=== PATIENT | male | born 1965 | race Two or more races ===

== ENCOUNTER 2021-10-08 10:03 | Outpatient (REF) | payer MEDICAID, SELFPAY ==
[2021-10-08 11:04] LABS: Basophils Percent Auto 0.2 % (0-2); Eosinophils Absolute Auto 0.1 X10*3/uL (0.0-0.4); Eosinophils Percent Auto 0.4 % (0-4); Hematocrit 37.9 % (42.0-52.0); Hemoglobin 12.7 g/dl (14.0-18.0); Imm Gran Abs Auto 0.05 X10*3/uL (0.00-0.03); Imm Gran Pct Auto 0.3 % (0.0-0.4); Lymphocytes Percent Auto 77.3 % (20-40); MANUAL DIFF FLAG SCAN; Mean Corpuscular HGB Conc 33.5 g/dl (31.0-36.0); Mean Corpuscular Hemoglobin 29.5 pg (27.0-33.0); Mean Corpuscular Volume 87.9 fL (80.0-98.0); Mean Platelet Volume 10.4 fL (9.4-12.4); Monocytes Absolute Auto 0.7 X10*3/uL (0.1-1.2); Monocytes Percent Auto 4.4 % (2-11); Neutrophils Absolute Auto 2.8 x10*3/uL (2.0-8.3); Neutrophils Percent Auto 17.4 % (45-73); Red Blood Count 4.31 X10*6/uL (4.60-5.80); Red Cell Distribution Width 14.6 % (11.0-16.0); SCAN SMEAR FLAG 1
[2021-10-08 11:05] LABS: Lymphocytes Absolute Auto 12.4 X10*3/uL (1.2-4.9)
[2021-10-08 11:13] LABS: INTERNATIONAL NORM RATIO 1.1 (0.9-1.1); Prothrombin Time 12.4 SEC (9.9-13.0)
[2021-10-08 11:25] LABS: Platelet Count 81 X10*3/uL (160-400); SLIDE REVIEW VERIFIED
[2021-10-08 11:35] LABS: Iron 83 mcg/dL (45-160); Percent Iron Saturation 19 % (15-50); Total Iron Binding Capacity 432 mcg/dL (228-428); Unsaturated Iron Binding 349 ug/dL
[2021-10-08 11:56] LABS: Ferritin 87 ng/mL (20-250)
[2021-10-08 11:59] LABS: Folate 12.6 ng/mL (> or = 4.0); Vitamin B12 707 pg/mL (200-900)
== END 2021-10-08 10:04 | disposition home or self-care (01) ==
LOC: HO.LAB 10:03
PROVIDERS: PCP Family Medicine; Visit Provider Family Medicine
DX: R20.0 Anesthesia of skin (principal)
CPT/HCPCS: 36415; 82607; 82728; 82746; 83540; 85025; 85610; 85730

== ENCOUNTER 2021-11-28 13:03 | Outpatient (REF) | payer MEDICAID, SELFPAY ==
--- NOTE | ~2021-11-28 | US_ITS ---
EXAMINATION: US EXTREMITY NONVASCULAR CLINICAL INFORMATION: Right lateral forearm tender mobile subcutaneous mass. COMPARISON: None TECHNIQUE: Limited imaging to the right upper forearm is performed. FINDINGS: There is no visible true mass or fluid collection. The area pointed by the lump is corresponding to a normal forearm muscle tissue. The subcutaneous soft tissues are normal, as well. US/US extremity nonvascular padgett IMPRESSION: No mass or fluid collection seen along the right forearm where patient points to an area of lump. The area is likely normal musculature.
== END 2021-11-28 13:04 | disposition home or self-care (01) ==
LOC: HO.US 13:03
PROVIDERS: PCP Family Medicine; Visit Provider Family Medicine
DX: R22.31 Localized swelling, mass and lump, right upper limb (principal)
CPT/HCPCS: 76882

== ENCOUNTER 2021-11-29 08:39 | Outpatient (REF) | payer MEDICAID, SELFPAY ==
--- NOTE | 2021-11-29 | EMG_ITS ---
Right median and ulnar motor and sensory studies were performed. Right radial sensory study was performed and paraspinal muscles were tested with a needle. IMPRESSION: 1. [id number] right median neuropathy across carpal tunnel. 2. Mild right ulnar neuropathy across cubital tunnel. MD RICK Win/RITIKA / [id number]
== END 2021-11-29 08:40 | disposition home or self-care (01) ==
LOC: HO.NEURO 08:39
PROVIDERS: PCP Family Medicine; Visit Provider Family Medicine
DX: R20.0 Anesthesia of skin (principal)
CPT/HCPCS: 95886; 95909

== ENCOUNTER 2022-01-04 14:24 | Outpatient (REF) | payer MEDICAID, SELFPAY ==
--- NOTE | ~2022-01-04 | CT_ITS ---
EXAMINATION: CT CHEST SCREENING CLINICAL INFORMATION: 45 pack year history. Current smoker. COMPARISON: Previous chest x-ray November 2017 TECHNIQUE: Multidetector volumetric CT imaging of the chest is performed without contrast using low dose technique. Additional 2D coronal and sagittal reformatted images and axial 3D maximum intensity projection (MIP) images are generated on the CT workstation. This CT examination was performed using dose optimization techniques as appropriate, variously including the following: *Automated exposure control *Adjustment of mA and/or kV according to patient size (this includes techniques or standardized protocols for targeted exams where dose is matched to indication/reason for exam; i.e. extremities or head) *Use of iterative reconstruction technique DLP: 72 mGy-cm FINDINGS: LUNGS: There is evidence of paraseptal and edema. There is a 4 mm calcified right middle lobe nodule 93 series 4. The lungs are otherwise clear. MEDIASTINUM: There is mild coronary artery calcification. The mediastinum is otherwise normal. PLEURA: There is no pleural effusion. No pleural mass or thickening. AXILLA: No lymphadenopathy. UPPER ABDOMEN: The spleen is very enlarged and measures at least 23 cm in AP dimension. Gallbladder has been removed. OSSEOUS STRUCTURES: Unremarkable. CT/CT lung screening IMPRESSION: Mild emphysema. 4 mm calcified right middle lobe nodule. Mild coronary artery calcification. Very enlarged spleen. ASSESSMENT: Lung-RADS category 2S: Benign S for the very enlarged spleen RECOMMENDATION: Annual low-dose chest CT follow-up recommended. Dedicated imaging of the spleen and correlation with blood work recommended.
== END 2022-01-04 14:25 | disposition home or self-care (01) ==
LOC: HO.CT 14:24
PROVIDERS: PCP Family Medicine; Visit Provider Physician Assistant Medical
DX: Z12.2 Encounter for screening for malignant neoplasm of respiratory organs (principal); F17.210 Nicotine dependence, cigarettes, uncomplicated
CPT/HCPCS: 71271; G0296

== ENCOUNTER 2022-01-29 12:25 | Outpatient (REF) | payer MEDICAID, SELFPAY ==
[2022-01-29 15:08] LABS: Alanine Aminotransferase 36 U/L (0-40); Albumin Level 4.1 g/dL (3.5-5.0); Alkaline Phosphatase 83 U/L (39-117); Anion Gap 10 (12-20); Aspartate Amino Transferase 48 U/L (5-37); Bilirubin Total 0.6 mg/dL (0.0-1.0); Blood Urea Nitrogen 12 mg/dL (9-16); Calcium 9.4 mg/dL (8.4-10.2); Carbon Dioxide 32 mmol/L (22-29); Chloride 102 mmol/L (96-108); Estimated Glomerular Filt Rate > 60; Glucose Random 100 mg/dL (60-115); Sodium 139 mmol/L (135-145); Total Protein 7.3 g/dL (6.5-8.0)
[2022-01-29 15:34] LABS: TSH reflex Free T4 0.64 uIU/mL (0.32-4.0)
[2022-01-29 15:39] LABS: Folate 8.1 ng/mL (> or = 4.0); Vitamin B12 792 pg/mL (200-900)
[2022-01-31 14:52] LABS: H Pylori Breath Test Negative (Negative)
[2022-02-03 12:57] LABS: Vitamin D 25-OH, D2 <4 ng/mL; Vitamin D 25-OH, D3 28 ng/mL; Vitamin D 25-OH, Total 28 ng/mL (30-100)
== END 2022-01-29 12:26 | disposition home or self-care (01) ==
LOC: HO.LAB 12:25
PROVIDERS: PCP Family Medicine; Referring Provider Family Medicine; Visit Provider Nurse Practitioner Family
DX: K59.04 Chronic idiopathic constipation (principal); K21.9 Gastro-esophageal reflux disease without esophagitis; R19.7 Diarrhea, unspecified; E55.9 Vitamin D deficiency, unspecified
CPT/HCPCS: 36415; 80053; 82306; 82607; 82746; 83013; 84443; 99202

== ENCOUNTER → 2022-02-01 15:09 | Outpatient (BNV) | payer MEDICAID, SELFPAY | PROVIDERS: PCP Family Medicine; Visit Provider Internal Medicine Medical Oncology | DX: R16.1 Splenomegaly, not elsewhere classified (principal) | CPT/HCPCS: 99203; 99213 ==

== ENCOUNTER 2022-03-07 06:53 | Outpatient (REF) | payer MEDICAID, SELFPAY ==
--- NOTE | ~2022-03-07 | CT_ITS ---
EXAMINATION: CT ABDOMEN WITH CONTRAST CLINICAL INFORMATION: Enlarged spleen COMPARISON: Previous abdominal ultrasound June [address] December 2011 TECHNIQUE: Contiguous axial thin section helical images of the abdomen were performed following the administration of oral contrast and 85 mL of Omnipaque 300 intravenous contrast. The data set was reformatted in the coronal and sagittal planes and reviewed on an independent workstation. This CT examination was performed using dose optimization techniques as appropriate, variously including the following: *Automated exposure control *Adjustment of mA and/or kV according to patient size (this includes techniques or standardized protocols for targeted exams where dose is matched to indication/reason for exam; i.e. extremities or head) *Use of iterative reconstruction technique DLP: 239 mGy-cm FINDINGS: LUNG BASES: The lung bases are clear. LIVER, GALLBLADDER, AND BILIARY TREE: There is lobular contour of the liver suggestive of cirrhotic change. No focal liver lesion is seen. The gallbladder has been removed. There is no biliary duct dilatation. PANCREAS: Normal SPLEEN: The spleen is enlarged measuring 22 cm in length. No focal splenic lesion is seen. ADRENAL GLANDS AND KIDNEYS: The adrenal glands are normal-appearing. There is a 1 cm low-attenuation lesion in the lower pole of the right kidney suggestive of a cyst. The kidneys are otherwise unremarkable. BOWEL LOOPS: Normal LYMPH NODES: Normal. VASCULAR: Main portal vein is enlarged and there are extensive varices suggestive of portal hypertension. There is no ascites. BONES: Unremarkable CT/CT abdomen w con IMPRESSION: Cirrhotic appearing liver, splenomegaly and evidence of portal hypertension. Fleischner guidelines were followed.
== END 2022-03-07 06:54 | disposition home or self-care (01) ==
LOC: HO.CT 06:53
PROVIDERS: Absent Provider Internal Medicine Medical Oncology; PCP Family Medicine; Visit Provider Family Medicine
DX: R16.1 Splenomegaly, not elsewhere classified (principal)
CPT/HCPCS: 74160; Q9967

== ENCOUNTER 2022-04-02 12:30 | Outpatient (REF) | payer MEDICAID, SELFPAY ==
--- NOTE | 2022-04-02 | PFT_ITS ---
FLOWS: FEV1 82% of predicted at 2.95 L. FVC 78% of predicted at 3.60 L. FEV1 to FVC ratio of 0.82. No bronchodilator response. LUNG VOLUMES: Total lung capacity 78% of predicted at 5.36 L. Residual volume 83% of predicted at 1.80 L. Slow vital capacity 76% of predicted at 3.56 L. Expiratory reserve volume 77% of predicted at 1.05 L. Diffusion capacity is normal. IMPRESSION: Mild restrictive ventilatory defect with no bronchodilator response. MD NADEGE Sebastian/MODL / [id number]
== END 2022-04-02 12:31 | disposition home or self-care (01) ==
LOC: HO.RESP 12:30
PROVIDERS: PCP Family Medicine; Visit Provider Family Medicine
DX: R06.02 Shortness of breath (principal); K59.04 Chronic idiopathic constipation; K21.9 Gastro-esophageal reflux disease without esophagitis
CPT/HCPCS: 94060; 94727; 94729; 99212

== ENCOUNTER 2022-06-20 12:42 | Outpatient (REF) | payer MEDICAID, SELFPAY ==
--- NOTE | ~2022-06-20 | XR_ITS ---
EXAMINATION: XR CHEST CLINICAL INFORMATION: Wheezing. Chest wall pain. COMPARISON: Previous chest x-ray November [address] December 2021 TECHNIQUE: 2 views of the chest were obtained. FINDINGS: No significant abnormality is noted involving the heart, lungs, mediastinum, bony thorax or soft tissues. XR/XR chest 2V IMPRESSION: Unremarkable examination.
== END 2022-06-20 12:43 | disposition home or self-care (01) ==
LOC: HO.XRAY 12:42
PROVIDERS: Visit Provider Pediatrics
DX: R07.81 Pleurodynia (principal); R06.2 Wheezing
CPT/HCPCS: 71046

== ENCOUNTER → 2022-06-26 07:47 | Outpatient (BNVA) | payer MEDICAID, SELFPAY | PROVIDERS: PCP Family Medicine; Referring Provider Nurse Practitioner Family; Visit Provider Internal Medicine Cardiovascular Disease | DX: R06.02 Shortness of breath (principal) | CPT/HCPCS: 93005; 99202 ==

== ENCOUNTER 2022-08-08 12:18 | Emergency (ER) | payer MEDICAID, SELFPAY ==
--- NOTE | ~2022-08-08 | XR_ITS ---
EXAMINATION: XR ABDOMEN KUB CLINICAL INDICATION: Fecal impaction. COMPARISON: CT abdomen 03/07/2022. TECHNIQUE: AP view of the abdomen. FINDINGS: Nonobstructive bowel gas pattern. Large amount of stool content. No significant soft tissue or osseous abnormalities. Right upper quadrant surgical clips are noted. XR/XR KUB IMPRESSION: Nonobstructive bowel gas pattern. Large amount of stool content.
--- NOTE | ~2022-08-08 | CT_ITS ---
EXAMINATION: CT ABDOMEN AND PELVIS WITHOUT CONTRAST CLINICAL INFORMATION: Right-sided abdominal pain. Constipation. COMPARISON: CT abdomen 03/07/2022. TECHNIQUE: Multidetector volumetric imaging was performed from the superior aspect of the liver through the pubic symphysis. Sagittal and coronal reformatted images were obtained on the technologist's workstation. This CT examination was performed using dose optimization techniques as appropriate, variously including the following: *Automated exposure control *Adjustment of mA and/or kV according to patient size (this includes techniques or standardized protocols for targeted exams where dose is matched to indication/reason for exam; i.e. extremities or head) *Use of iterative reconstruction technique DLP: 750 mGy-cm FINDINGS: LUNG BASES: Bronchial wall thickening and subsegmental atelectasis. Calcified granuloma in the right middle lobe. No focal consolidation or pleural effusion. LIVER, GALLBLADDER, AND BILIARY TREE: Hepatomegaly with nodular contour of the liver and hypertrophy of the caudate suggesting cirrhosis. Limited evaluation of HCC and liver lesions in the absence of IV contrast. Cholecystectomy. Stable dilatation of the common bile duct. No significant intrahepatic biliary ductal dilatation. PANCREAS: Limited noncontrast examination, unremarkable. SPLEEN: Again noted splenomegaly measuring 20.2 cm craniocaudally, previously 22.6 cm on 03/07/2022. ADRENAL GLANDS: No adrenal mass. KIDNEYS AND URETERS: The kidneys are normal in size, shape, and attenuation. No hydronephrosis, hydroureter, or calculi seen. No perinephric stranding. BLADDER: Unremarkable. GASTROINTESTINAL TRACT: The stomach and the small bowel are nondilated. There are fluid filled loops of small bowel in the lower abdomen, which could be seen with gastroenteritis. The appendix is not definitely identified, however there are no regional inflammatory changes to suspected acute appendicitis. Moderate colonic stool content. No pericolic inflammatory changes. No evidence of bowel obstruction. ABDOMINAL WALL: No significant hernia is appreciated. LYMPH NODES: Stable periportal lymphadenopathy, for instance measuring 1.3 cm in short axis (3:26) nonspecific in the setting of cirrhosis. VASCULAR: Limited noncontrast examination with redemonstration of upper abdominal portosystemic varices and left-sided splenorenal shunt. Abdominal aorta is of normal diameter. PELVIC VISCERA: Unremarkable. OSSEOUS STRUCTURES: No acute or aggressive appearing osseous abnormalities. CT/CT abdomen pelvis wo IV con IMPRESSION: 1. Fluid-filled loops of small bowel in the lower abdomen, which could be seen with gastroenteritis in the appropriate clinical context. No evidence of bowel obstruction. 2. Moderate colonic stool burden. 3. Redemonstration of cirrhosis with findings most consistent with portal hypertension including splenomegaly and portosystemic collaterals. Limited evaluation of HCC and liver lesions in the absence of IV contrast. 4. Bronchial wall thickening suggesting small airways disease.
[2022-08-08 12:48] VITALS: PULSE 80; RESP 18; TEMP 36.7; O2SAT 96; BMI 33.6
[2022-08-08 13:03] LABS: PLT CLUMP 1; SCAN SMEAR FLAG 1
[2022-08-08 13:05] LABS: Basophils Percent Auto 0.2 % (0-2); Eosinophils Absolute Auto 0.1 X10*3/uL (0.0-0.4); Eosinophils Percent Auto 1.9 % (0-4); Hematocrit 33.8 % (42.0-52.0); Hemoglobin 11.8 g/dl (14.0-18.0); Imm Gran Abs Auto 0.03 X10*3/uL (0.00-0.03); Imm Gran Pct Auto 0.6 % (0.0-0.4); Lymphocytes Absolute Auto 1.5 X10*3/uL (1.2-4.9); Lymphocytes Percent Auto 31.5 % (20-40); Mean Corpuscular HGB Conc 34.9 g/dl (31.0-36.0); Mean Platelet Volume 10.5 fL (9.4-12.4); Monocytes Absolute Auto 0.4 X10*3/uL (0.1-1.2); Monocytes Percent Auto 9.1 % (2-11); Neutrophils Absolute Auto 2.8 x10*3/uL (2.0-8.3); Neutrophils Percent Auto 56.7 % (45-73); Red Blood Count 3.93 X10*6/uL (4.60-5.80); Red Cell Distribution Width 13.5 % (11.0-16.0)
[2022-08-08 13:06] LABS: White Blood Count 4.9 X10*3/uL (4.8-10.8)
[2022-08-08 13:07] LABS: MANUAL DIFF FLAG NO; Platelet Count 67 X10*3/uL (160-400)
[2022-08-08 13:35] LABS: Alanine Aminotransferase 64 U/L (0-40); Albumin Level 4.3 g/dL (3.5-5.0); Alkaline Phosphatase 80 U/L (39-117); Anion Gap 13 (12-20); Aspartate Amino Transferase 53 U/L (5-37); Bilirubin Total 0.7 mg/dL (0.0-1.0); Blood Urea Nitrogen 18 mg/dL (9-16); Calcium 9.5 mg/dL (8.4-10.2); Carbon Dioxide 31 mmol/L (22-29); Chloride 100 mmol/L (96-108); Creatinine Clr Calc Pharmacy 114.9; Estimated Glomerular Filt Rate > 60; Glucose Random 120 mg/dL (60-115); Potassium 4.5 mmol/L (3.3-5.1); Sodium 139 mmol/L (135-145); Total Protein 7.5 g/dL (6.5-8.0)
[2022-08-08 15:23] VITALS: BP 138/78; PULSE 77; RESP 16; TEMP 36.3; O2SAT 97
--- NOTE | 2022-08-08 15:43 | ED.ABDPAIN ---
HPI - Abdominal Pain General Chief Complaint: Abdominal Pain Stated Complaint: Abdominal Pain Time Seen by Provider: 08/08/22 23:41 Related Data Home Medications Medication Instructions Recorded Confirmed amlodipine 10 mg tablet 10 mg PO DAILY 01/29/22 04/02/22 buprenorphine 8 mg-naloxone 2 mg 10 mg sublingual BID 01/29/22 04/02/22 sublingual film (Suboxone) ferrous gluconate 324 mg (38 mg 324 mg PO DAILY 01/29/22 04/02/22 iron) tablet hydrochlorothiazide 25 mg tablet 25 mg PO DAILY 01/29/22 04/02/22 lisinopril 40 mg tablet 40 mg PO DAILY 01/29/22 04/02/22 trazodone 150 mg tablet 150 mg PO BEDTIME 01/29/22 04/02/22 Previous Rx's Medication Instructions Recorded docusate sodium 100 mg capsule 100 mg PO BID #60 caps 01/29/22 omeprazole 20 mg capsule,delayed 20 mg PO DAILY #30 caps 01/29/22 release bisacodyl 5 mg tablet,delayed 10 mg PO ONCE 1 day #2 tabs 04/02/22 release (Dulcolax (bisacodyl)) lactulose 20 gram oral packet 20 g PO DAILY PRN constipation #30 08/09/22 (Kristalose) ea Allergies Allergy/AdvReac Type Severity Reaction Status Date / Time No Known Allergies Allergy Verified 08/08/22 12:48 [No Known Allergies*] [facility] Past Medical History Medical History Chronic hepatitis C Colon polyp, hyperplastic (~2016) History of heroin use Hypertension, essential, benign Insomnia Liver cirrhosis Personal history of nicotine dependence Surgical History History of cholecystectomy (~2020) History of colonoscopy History of esophagogastroduodenoscopy (EGD) Family History Family History Brother Lung cancer Social History Social History Household Members: Family Housing: House Are you a primary career representative to a significant other at home: No Do you presently have visiting nurse or other home services: No Patient Tobacco Use Status: Former Tobacco user Tobacco use type: Cigarette Cigarette Packs Per Day: 1 Years Smoked: onset 11, 1ppd x 45yrs, 45pyh - QUIT 02/26/2022 Advance Directives: No Advance Directives Information Provided: Yes service: No Current occupational status: employed Physical Exam ED Vital Signs: Vital Signs - 24 hr 08/09/22 02:11 Temperature 97.8 F Pulse Rate 73 Respiratory Rate 16 Blood Pressure 142/77 H Pulse Oximetry 97 Oxygen Delivery Method Room Air BMI result Body Mass Index 33.6 Course Course Course Narrative: RME--57yoM PMHx Hep C presenting c/o 1 week of abd distention and pain. Sent in by PCP for paracentesis. Also reports constipation. Not on AC Labs, UA and CT ordered in triage Medications Administered Discontinued Medications Generic Name Dose Route Start Last Admin Trade Name Freq PRN Reason Stop Dose Admin Lactulose 20 gm 08/08/22 23:56 08/09/22 00:13 Lactulose 20 Gm/30 Ml Solution PO 08/08/22 23:57 20 gm ONCE ONE Administration Magnesium Hydroxide 30 ml 08/09/22 00:24 08/09/22 00:56 Milk Of Magnesia 30 Ml Oral.Susp PO 08/09/22 00:25 30 ml ONCE ONE Administration Sodium Biphosphate/Sodium Phosphate 133 ml 08/09/22 00:24 08/09/22 00:56 Sodium Phosphate,[place]-Dibasic 133 Ml Enema ND 08/09/22 00:25 133 ml ONCE ONE Administration MDM - Abdominal Pain Lab Data Result diagrams: 08/08/22 12:55 08/08/22 12:55 Labs: Lab Results 08/08/22 08/08/22 08/08/22 Range/Units 12:55 12:55 15:45 WBC 4.9 (4.8-10.8) X10*3/uL RBC 3.93 L (4.60-5.80) X10*6/uL Hgb 11.8 L (14.0-18.0) g/dl Hct 33.8 L (42.0-52.0) % MCV 86.0 (80.0-98.0) fL MCH 30.0 (27.0-33.0) pg MCHC 34.9 (31.0-36.0) g/dl RDW 13.5 (11.0-16.0) % Plt Count 67 L (160-400) X10*3/uL MPV 10.5 (9.4-12.4) fL Immature Gran % (Auto) 0.6 H (0.0-0.4) % Neut % (Auto) 56.7 (45-73) % Lymph % (Auto) 31.5 (20-40) % [place] % (Auto) 9.1 (2-11) % Eos % (Auto) 1.9 (0-4) % Baso % (Auto) 0.2 (0-2) % Lymph # (Auto) 1.5 (1.2-4.9) X10*3/uL [place] # (Auto) 0.4 (0.1-1.2) X10*3/uL Eos # (Auto) 0.1 (0.0-0.4) X10*3/uL Baso # (Auto) 0.0 (0.0-0.2) X10*3/uL Abs Immat Gran (auto) 0.03 (0.00-0.03) X10*3/uL Absolute Neuts (auto) 2.8 (2.0-8.3) x10*3/uL Absolute Nucleated RBC 0.000 (0.0-0.012) X10*3/uL Nucleated RBC % (auto) 0.0 (0.0-0.2) /100WBC PT 12.0 (10.0-13.1) SEC INR 1.0 (0.9-1.1) APTT 30.9 (26.0-36.4) SEC Sodium 139 (135-145) mmol/L Potassium 4.5 (3.3-5.1) mmol/L Chloride 100 (96-108) mmol/L Carbon Dioxide 31 H (22-29) mmol/L Anion Gap 13 (12-20) BUN 18 H (9-16) mg/dL Creatinine 0.83 (0.5-1.4) mg/dL Estim Creat Clear Calc 114.9 Estimated GFR > 60 Random Glucose 120 H (60-115) mg/dL Calcium 9.5 (8.4-10.2) mg/dL Magnesium 1.9 (1.6-2.6) mg/dL Total Bilirubin 0.7 (0.0-1.0) mg/dL AST 53 H (5-37) U/L ALT 64 H (0-40) U/L Alkaline Phosphatase 80 (39-117) U/L Total Protein 7.5 (6.5-8.0) g/dL Albumin 4.3 (3.5-5.0) g/dL Lipase 32 (8-78) U/L Discharge Plan Discharge Clinical Impression: Constipation, Leg edema Patient Disposition: Home, Self-Care Instructions: Constipation (ED), Leg Edema (ED) Additional Instructions: Drink plenty of fluids Take stool softener as prescribed Follow-up with PCP Keep your legs elevated for leg swelling Prescriptions: [place]ose 20 gram packet 20 g PO DAILY PRN (Reason: constipation) Qty: 30 0RF No Action buprenorphine-naloxone [Suboxone] 8-2 mg film 10 mg sublingual BID trazodone 150 mg tablet 150 mg PO BEDTIME amlodipine 10 mg tablet 10 mg PO DAILY lisinopril 40 mg tablet 40 mg PO DAILY hydrochlorothiazide 25 mg tablet 25 mg PO DAILY ferrous gluconate 324 mg (38 mg iron) tablet 324 mg PO DAILY docusate sodium 100 mg capsule 100 mg PO BID Qty: 60 3RF omeprazole 20 mg capsule,delayed release(DR/EC) 20 mg PO DAILY Qty: 30 3RF bisacodyl [Dulcolax (bisacodyl)] 5 mg tablet,delayed release (DR/EC) 10 mg PO ONCE 1 Days Qty: 2 0RF Rx Instructions: take 2 tabs at noon the day before your colonoscopy Stand Alone Forms: Work/School Release Interventions: ED Discharge Assessment Last Done: 08/09/22 03:50 Discharge Date/Time: 08/09/22 03:52 Print Language: Greek
[2022-08-08 15:48] LABS: Lipase 32 U/L (8-78); Magnesium 1.9 mg/dL (1.6-2.6)
[2022-08-08 16:01] LABS: Partial Thromboplastin Time 30.9 SEC (26.0-36.4)
--- NOTE | 2022-08-08 23:57 | ED_ITS ---
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 no significant shortness of breath no fever no chills no fever no history of ascites in the past Related Data Home Medications Medication Instructions Recorded Confirmed amlodipine 10 mg tablet 10 mg PO DAILY 01/29/22 04/02/22 buprenorphine 8 mg-naloxone 2 mg 10 mg sublingual BID 01/29/22 04/02/22 sublingual film (Suboxone) ferrous gluconate 324 mg (38 mg 324 mg PO DAILY 01/29/22 04/02/22 iron) tablet hydrochlorothiazide 25 mg tablet 25 mg PO DAILY 01/29/22 04/02/22 lisinopril 40 mg tablet 40 mg PO DAILY 01/29/22 04/02/22 trazodone 150 mg tablet 150 mg PO BEDTIME 01/29/22 04/02/22 Previous Rx's Medication Instructions Recorded docusate sodium 100 mg capsule 100 mg PO BID #60 caps 01/29/22 omeprazole 20 mg capsule,delayed 20 mg PO DAILY #30 caps 01/29/22 release bisacodyl 5 mg tablet,delayed 10 mg PO ONCE 1 day #2 tabs 04/02/22 release (Dulcolax (bisacodyl)) lactulose 20 gram oral packet 20 g PO DAILY PRN constipation #30 08/09/22 (Kristalose) ea Allergies Allergy/AdvReac Type Severity Reaction Status Date / Time No Known Allergies Allergy Verified 08/08/22 12:48 [No Known Allergies*] Review of Systems Review of Systems Yes all other systems are reviewed and are negative [facility] Past Medical History Medical History Chronic hepatitis C Colon polyp, hyperplastic (~2017) History of heroin use Hypertension, essential, benign Insomnia Liver cirrhosis Personal history of nicotine dependence Surgical History History of cholecystectomy (~2020) History of colonoscopy History of esophagogastroduodenoscopy (EGD) Family History Family History Brother Lung cancer Social History Social History Household Members: Family Housing: House Are you a primary memory care director to a significant other at home: No Do you presently have visiting nurse or other home services: No Patient Tobacco Use Status: Former Tobacco user Tobacco use type: Cigarette Cigarette Packs Per Day: 1 Years Smoked: onset 11, 1ppd x 45yrs, 45pyh - QUIT 02/26/2022 Advance Directives: No Advance Directives Information Provided: Yes service: No Current occupational status: employed Physical Exam ED Vital Signs: Vital Signs - 24 hr 08/08/22 12:48 08/08/22 15:23 08/09/22 02:11 Temperature 98.0 F 97.3 F 97.8 F Pulse Rate 80 77 73 Respiratory Rate 18 16 16 Blood Pressure 138/78 142/77 H Pulse Oximetry 96 97 97 Oxygen Delivery Method Room Air Room Air Room Air BMI result Body Mass Index 33.6 Appearance: Alert. Oriented X3. No acute distress. Eyes: No pallor or icterus ENT: Pharynx normal. Oral Mucosa moist Neck: Normal inspection. Neck supple. CVS: Normal heart rate and rhythm. Pulses normal. Respiratory: No respiratory distress. Equal air entry bilateral, no wheezing/rales/rhonchi Abdomen: Gaseous distended Bowel sounds are present, no mass palpable, no CVA tenderness rectal: Semi soft stool in the rectum brown color Skin: Skin warm and dry. Normal skin color. Normal skin turgor. Extremities: 1+ lower extremity edema. No calf tenderness Neuro: Oriented X 3. No motor deficit. Medications Administered Discontinued Medications Generic Name Dose Route Start Last Admin Trade Name Freq PRN Reason Stop Dose Admin Lactulose 20 gm 08/08/22 23:56 08/09/22 00:13 Lactulose 20 Gm/30 Ml Solution PO 08/08/22 23:57 20 gm ONCE ONE Administration Magnesium Hydroxide 30 ml 08/09/22 00:24 08/09/22 00:56 Milk Of Magnesia 30 Ml Oral.Susp PO 08/09/22 00:25 30 ml ONCE ONE Administration Sodium Biphosphate/Sodium Phosphate 133 ml 08/09/22 00:24 08/09/22 00:56 Sodium Phosphate,[place]-Dibasic 133 Ml Enema [place] 08/09/22 00:25 133 ml ONCE ONE Administration MDM - Abdominal Pain MDM Narrative Medical decision making narrative: Patient has chronic constipation came with abdominal distension has not moved his bowels for last 2 weeks KUB x-ray showed moderate amount of stool . Will give patient milk of magnesium and Fleet enema Patient's CT scan negative for any ascites patient had a big bowel movement in the ER feeling much better will discharge patient home Differential Diagnosis Differential diagnosis: Likely abdominal pain, constipation and small bowel obstruction Lab Data Attestation: I reviewed the patient's lab results. Result diagrams: 08/08/22 12:55 08/08/22 12:55 Labs: Lab Results 08/08/22 08/08/22 08/08/22 Range/Units 12:55 12:55 15:45 WBC 4.9 (4.8-10.8) X10*3/uL RBC 3.93 L (4.60-5.80) X10*6/uL Hgb 11.8 L (14.0-18.0) g/dl Hct 33.8 L (42.0-52.0) % MCV 86.0 (80.0-98.0) fL MCH 30.0 (27.0-33.0) pg MCHC 34.9 (31.0-36.0) g/dl RDW 13.5 (11.0-16.0) % Plt Count 67 L (160-400) X10*3/uL MPV 10.5 (9.4-12.4) fL Immature Gran % (Auto) 0.6 H (0.0-0.4) % Neut % (Auto) 56.7 (45-73) % Lymph % (Auto) 31.5 (20-40) % [place] % (Auto) 9.1 (2-11) % Eos % (Auto) 1.9 (0-4) % Baso % (Auto) 0.2 (0-2) % Lymph # (Auto) 1.5 (1.2-4.9) X10*3/uL [place] # (Auto) 0.4 (0.1-1.2) X10*3/uL Eos # (Auto) 0.1 (0.0-0.4) X10*3/uL Baso # (Auto) 0.0 (0.0-0.2) X10*3/uL Abs Immat Gran (auto) 0.03 (0.00-0.03) X10*3/uL Absolute Neuts (auto) 2.8 (2.0-8.3) x10*3/uL Absolute Nucleated RBC 0.000 (0.0-0.012) X10*3/uL Nucleated RBC % (auto) 0.0 (0.0-0.2) /100WBC PT 12.0 (10.0-13.1) SEC INR 1.0 (0.9-1.1) APTT 30.9 (26.0-36.4) SEC Sodium 139 (135-145) mmol/L Potassium 4.5 (3.3-5.1) mmol/L Chloride 100 (96-108) mmol/L Carbon Dioxide 31 H (22-29) mmol/L Anion Gap 13 (12-20) BUN 18 H (9-16) mg/dL Creatinine 0.83 (0.5-1.4) mg/dL Estim Creat Clear Calc 114.9 Estimated GFR > 60 Random Glucose 120 H (60-115) mg/dL Calcium 9.5 (8.4-10.2) mg/dL Magnesium 1.9 (1.6-2.6) mg/dL Total Bilirubin 0.7 (0.0-1.0) mg/dL AST 53 H (5-37) U/L ALT 64 H (0-40) U/L Alkaline Phosphatase 80 (39-117) U/L Total Protein 7.5 (6.5-8.0) g/dL Albumin 4.3 (3.5-5.0) g/dL Lipase 32 (8-78) U/L Discharge Plan Discharge Clinical Impression: Constipation, Leg edema Patient Disposition: Home, Self-Care Instructions: Constipation (ED), Leg Edema (ED) Additional Instructions: Drink plenty of fluids Take stool softener as prescribed Follow-up with PCP Keep your legs elevated for leg swelling Prescriptions: [place] 20 gram packet 20 g PO DAILY PRN (Reason: constipation) Qty: 30 0RF No Action buprenorphine-naloxone [Suboxone] 8-2 mg film 10 mg sublingual BID trazodone 150 mg tablet 150 mg PO BEDTIME amlodipine 10 mg tablet 10 mg PO DAILY lisinopril 40 mg tablet 40 mg PO DAILY hydrochlorothiazide 25 mg tablet 25 mg PO DAILY ferrous gluconate 324 mg (38 mg iron) tablet 324 mg PO DAILY docusate sodium 100 mg capsule 100 mg PO BID Qty: 60 3RF omeprazole 20 mg capsule,delayed release(DR/EC) 20 mg PO DAILY Qty: 30 3RF bisacodyl [Dulcolax (bisacodyl)] 5 mg tablet,delayed release (DR/EC) 10 mg PO ONCE 1 Days Qty: 2 0RF Rx Instructions: take 2 tabs at noon the day before your colonoscopy Stand Alone Forms: Work/School Release
[2022-08-09] MEDS: Lactulose 20 GM/30 ML SOLUTION PO (00:13)
[2022-08-09] MEDS: Milk of Magnesia 30 ML ORAL.SUSP PO (00:56)
[2022-08-09] MEDS: Sodium Phosphate,Mono-Dibasic 133 ML ENEMA PR (00:56)
[2022-08-09 02:11] VITALS: BP 142/77; PULSE 73; RESP 16; TEMP 36.6; O2SAT 97
== END 2022-08-09 03:52 | disposition home or self-care (01) ==
PROVIDERS: Physician Assistant; Emergency Provider Internal Medicine; PCP Family Medicine
DX: K59.00 Constipation, unspecified (principal); R60.0 Localized edema; K70.30 Alcoholic cirrhosis of liver without ascites; B19.20 Unspecified viral hepatitis C without hepatic coma; F11.20 Opioid dependence, uncomplicated; Z87.891 Personal history of nicotine dependence; Z79.899 Other long term (current) drug therapy
CPT/HCPCS: 36415; 74018; 74176; 80053; 83690; 83735; 85025; 85610; 85730; 99284

== ENCOUNTER → 2022-08-19 08:58 | Outpatient (REF) | payer MEDICAID, SELFPAY ==
--- NOTE | 2022-08-19 09:06 | CA_ITS ---
Transthoracic Echocardiogram Patient (Last, First, Middle): Suhail Hernandez, Gender: Male Date of : 1965 Age: 57 Procedure Date: 08/19/2022 Procedure Type: Transthoracic Echocardiogram Location: OP Height: 175.26 cm Weight: 100.7 kg BSA: 2.16 m2 Heart Rate: 70 bpm BP: 125 / 70 mmHg Strategic Debriefing Officer: ONEIL Referring MD: Miguel Angel Segura MD Symptoms: R06.02 - Shortness of breath Study Quality: Adequate ECG Rhythm: Sinus Conclusions: - The left ventricular systolic function is normal. The visually estimated ejection fraction is between 65-70%. - There is moderate septal asymmetric hypertrophy. - No obvious valvular pathology seen on this study. Findings Left Ventricle Normal left ventricular cavity size. There is mildly increased left ventricular wall thickness. The left ventricular systolic function is normal. The visually estimated ejection fraction is between 65-70%. There is no evidence of regional wall motion abnormalities. There is moderate septal asymmetric hypertrophy. Right Ventricle Normal right ventricular cavity size. There is normal right ventricular systolic function. Atria Both atria are normal in size. Aortic Valve There is a normal trileaflet aortic valve. There is no aortic valve stenosis. There is no aortic valve regurgitation. Mitral Valve The mitral valve appears normal. There is trace mitral valve regurgitation. There is no mitral valve stenosis. Pulmonic Valve The pulmonic valve is likely normal. Tricuspid Valve Normal tricuspid valve structure. There is trace tricuspid valve regurgitation. There is no evidence of pulmonary hypertension. Great Vessels The asc aorta is normal in size. Venous The inferior vena cava is normal in size and collapses greater than 50% with inspiration. Pericardium/Pleural There is no evidence of pericardial effusion. Prior Study Comparison No prior study available for comparison. Recommendations, Care & Conclusions No obvious valvular pathology seen on this study. Measurements 2D Linear Measurements IVSd: 1.43 0.6-0.9/0.6-1.0 cm LVIDd: 4.84 3.9-5.3/4.2-5.9 cm LVIDd Index: 2.24 2.4-3.2/2.2-3.1 cm/m2 LVIDs: 2.94 2.0-3.6 cm LVPWd: 1.19 0.7-1.1 cm LA Diam: 4.00 2.7-3.8/3.0-4.0 cm LAIDs Index: 1.85 1.5-2.3 cm/m2 LV Mass: 313.85 67-162/88-224 g LV Mass Index: 145.30 43-95/49-115 g/m2 LVOT Diam: 2.20 3.0+(-)1.3 cm 2D Systolic Function EF 4C: 60.00 >55% EF 2C: 57.70 >55% EF BiP: 59.40 >55% Mitral Valve MV Pk E: 0.92 MV PK A: 0.83 MV Decel Time: 285.00 E/A: 1.10 E'Lateral: 8.59 E'Medial: 6.42 E/E' Med: 14.30 E/E' Lat: 10.70 PHT: 84.00 MVA PHT: 2.62 Decel [place]: 3.23 Aortic Valve AoV Pk [place]: 1.69 AoV Mn [place]: 1.19 AoV VTI: 0.34 AoV Pk Grad: 11.00 Aov Mn Grad: 7.00 ZAINAB Cont.VTI: 2.92 LVOT LVOT Pk [place]: 1.18 LVOT Mn [place]: 0.76 LVOT VTI: 0.26 LVOT Pk Grad: 6.00 LVOT Mn Grad: 3.00 LVOT Diam: 2.20 LVOT Area: 3.80 Diastolic Function MV Pk E: 0.92 MV Pk A: 0.83 E/A: 1.10 E'Medial: 6.42 E/E' Med: 14.30 E' Laterial: 8.59 E/E' Lat: 10.70 Right Ventricle TAPSE (mm): 28.50 TVS' [place]: 15.20 Tricuspid Valve TR Pk [place]: 2.22 TR Pk Grad: 20.00 RA Press: 3.00 RVSP: 23.00 Great Vessels Aorta Sinus of Valsalva: 3.20 2.0-3.5 cm Ao Asc: 3.50 2.1-3.4 cm Pulmonary Valve PV Pk [place]: 1.22 Peak PV Grad: 6.00 Updated in Other Vendor System with Status of Final Mike Cartwright MD electronically signed on 08/21/2022 11:46:27 AM with status of Final
--- NOTE | 2022-08-19 09:06 | CA_ITS ---
Acquisition Time: 2022-08-19 10:04:09 Total Exercise Time: 00:02:16 Test Indications: Chest pain Medications: Protocol: GARRET Max HR: 127 BPM 78% of Pred: 162 BPM Max BP: 142/086 mmHG Max Work Load: 4.6 METS Exercise stress test wioth exercise 2 min 16 sec of Garret protocol, achieving 78% MPHR, with moderate to severe sob, 7-8/10 left chest pressure. with isolated PAC, with normotensive response to exercise, with EKG changes suggestive of ischemia: at baseline there are downsloping ST segments leads III, aVF, V6 then with exercise there are ST depression in leads II, III, aVF and V6 with improvement back to baseline in recovery. In recovery his breathing normalized and chest pressure quickly resolved. Test reviewed with Dr Cartwright. Referred By: Miguel Angel Segura Overread By: ANTON LEMUS
== END ==
LOC: HO.CARD 08:58
PROVIDERS: Visit Provider Internal Medicine Cardiovascular Disease
DX: R06.02 Shortness of breath (principal)
CPT/HCPCS: 93017; 93306

== ENCOUNTER 2022-08-27 15:03 | Outpatient (REF) | payer MEDICAID, SELFPAY ==
[2022-08-27 15:24] LABS: MANUAL DIFF FLAG NO
[2022-08-27 16:05] LABS: Basophils Percent Auto 0.4 % (0-2); Eosinophils Absolute Auto 0.1 X10*3/uL (0.0-0.4); Eosinophils Percent Auto 2.6 % (0-4); Hematocrit 33.3 % (42.0-52.0); Hemoglobin 11.4 g/dl (14.0-18.0); Imm Gran Abs Auto 0.02 X10*3/uL (0.00-0.03); Imm Gran Pct Auto 0.4 % (0.0-0.4); Lymphocytes Percent Auto 38.6 % (20-40); Mean Corpuscular HGB Conc 34.2 g/dl (31.0-36.0); Mean Corpuscular Hemoglobin 30.3 pg (27.0-33.0); Mean Corpuscular Volume 88.6 fL (80.0-98.0); Mean Platelet Volume 11.1 fL (9.4-12.4); Monocytes Absolute Auto 0.5 X10*3/uL (0.1-1.2); Monocytes Percent Auto 9.9 % (2-11); Neutrophils Absolute Auto 2.4 x10*3/uL (2.0-8.3); Neutrophils Percent Auto 48.1 % (45-73); Red Blood Count 3.76 X10*6/uL (4.60-5.80); Red Cell Distribution Width 13.2 % (11.0-16.0); White Blood Count 5.1 X10*3/uL (4.8-10.8)
[2022-08-27 16:13] LABS: Platelet Count 73 X10*3/uL (160-400)
[2022-08-27 16:14] LABS: INTERNATIONAL NORM RATIO 1.1 (0.9-1.1); Prothrombin Time 13.1 SEC (10.0-13.1)
[2022-08-27 16:24] LABS: Anion Gap 12 (12-20); Blood Urea Nitrogen 28 mg/dL (9-16); Carbon Dioxide 33 mmol/L (22-29); Chloride 98 mmol/L (96-108); Estimated Glomerular Filt Rate > 60; Glucose Random 97 mg/dL (60-115); Potassium 4.5 mmol/L (3.3-5.1); Sodium 138 mmol/L (135-145)
== END 2022-08-27 15:04 | disposition home or self-care (01) ==
LOC: HO.LAB 15:03
PROVIDERS: PCP Family Medicine; Visit Provider Nurse Practitioner Family
DX: R07.9 Chest pain, unspecified (principal); R94.39 Abnormal result of other cardiovascular function study; I42.2 Other hypertrophic cardiomyopathy; I10 Essential (primary) hypertension; Z79.899 Other long term (current) drug therapy; Z87.891 Personal history of nicotine dependence
CPT/HCPCS: 36415; 80048; 85025; 85610; 99212

== ENCOUNTER 2022-09-17 16:05 | Outpatient (REF) | payer MEDICAID, SELFPAY ==
[2022-09-17 16:22] LABS: MANUAL DIFF FLAG NO
[2022-09-17 16:26] LABS: Basophils Percent Auto 0.5 % (0-2); Eosinophils Absolute Auto 0.2 X10*3/uL (0.0-0.4); Eosinophils Percent Auto 2.8 % (0-4); Hematocrit 31.9 % (42.0-52.0); Hemoglobin 11.2 g/dl (14.0-18.0); Imm Gran Abs Auto 0.02 X10*3/uL (0.00-0.03); Imm Gran Pct Auto 0.4 % (0.0-0.4); Lymphocytes Absolute Auto 2.4 X10*3/uL (1.2-4.9); Lymphocytes Percent Auto 42.7 % (20-40); Mean Corpuscular HGB Conc 35.1 g/dl (31.0-36.0); Mean Corpuscular Volume 85.5 fL (80.0-98.0); Mean Platelet Volume 10.1 fL (9.4-12.4); Monocytes Absolute Auto 0.6 X10*3/uL (0.1-1.2); Monocytes Percent Auto 9.8 % (2-11); Neutrophils Absolute Auto 2.5 x10*3/uL (2.0-8.3); Neutrophils Percent Auto 43.8 % (45-73); Platelet Count 76 X10*3/uL (160-400); Red Blood Count 3.73 X10*6/uL (4.60-5.80); Red Cell Distribution Width 13.3 % (11.0-16.0); White Blood Count 5.6 X10*3/uL (4.8-10.8)
[2022-09-17 16:45] LABS: Alanine Aminotransferase 58 U/L (0-40); Albumin Level 4.4 g/dL (3.5-5.0); Alkaline Phosphatase 82 U/L (39-117); Anion Gap 11 (12-20); Aspartate Amino Transferase 49 U/L (5-37); Bilirubin Total 0.6 mg/dL (0.0-1.0); Blood Urea Nitrogen 24 mg/dL (9-16); Calcium 9.7 mg/dL (8.4-10.2); Carbon Dioxide 31 mmol/L (22-29); Chloride 102 mmol/L (96-108); Estimated Glomerular Filt Rate > 60; Glucose Random 122 mg/dL (60-115); Lactate Dehydrogenase 204 U/L (118-273); Potassium 5.1 mmol/L (3.3-5.1); Sodium 139 mmol/L (135-145); Total Protein 7.5 g/dL (6.5-8.0)
== END 2022-09-17 16:06 | disposition home or self-care (01) ==
LOC: HO.LAB 16:05
PROVIDERS: Internal Medicine Medical Oncology; PCP Family Medicine; Visit Provider Nurse Practitioner Family
DX: R16.1 Splenomegaly, not elsewhere classified (principal)
CPT/HCPCS: 36415; 80053; 83615; 85025

== ENCOUNTER → 2022-10-02 14:18 | Outpatient (BNVA) | payer MEDICAID, SELFPAY | PROVIDERS: PCP Family Medicine; Referring Provider Family Medicine; Visit Provider Nurse Practitioner Family | DX: R07.9 Chest pain, unspecified (principal); I42.2 Other hypertrophic cardiomyopathy; I10 Essential (primary) hypertension; I25.10 Atherosclerotic heart disease of native coronary artery without angina pectoris; Z79.82 Long term (current) use of aspirin; Z79.899 Other long term (current) drug therapy; Z98.890 Other specified postprocedural states | CPT/HCPCS: 99212 ==

== ENCOUNTER → 2022-10-08 15:26 | Outpatient (BNVA) | payer MEDICAID, SELFPAY | PROVIDERS: PCP Family Medicine; Visit Provider Nurse Practitioner Family | DX: K59.04 Chronic idiopathic constipation (principal); K21.9 Gastro-esophageal reflux disease without esophagitis | CPT/HCPCS: 99212 ==

== ENCOUNTER 2023-02-11 11:19 | Outpatient (REF) | payer MEDICAID, SELFPAY ==
--- NOTE | ~2023-02-11 | US_ITS ---
EXAMINATION: US ABDOMEN LIMITED CLINICAL INFORMATION: Right upper quadrant pain. COMPARISON: CT abdomen pelvis dated 08/09/2022 TECHNIQUE: Real-time imaging of the right upper quadrant abdominal viscera. FINDINGS: PANCREAS: Obscured LIVER: The liver is enlarged at 21 cm cephalocaudad and echogenic compatible with steatosis. No focal hepatic lesion. No intrahepatic biliary dilatation. Prominent main portal vein. GALLBLADDER: The gallbladder is absent. COMMON BILE DUCT: Normal in caliber measuring 0.3 cm in diameter. RIGHT KIDNEY: Normal. No hydronephrosis. No renal calculi or focal parenchymal lesions. The kidney measures 11.7 cm in maximum dimension. FREE FLUID: None. Incidental note is made of splenomegaly at 19 cm cephalocaudad with a small adjacent 28 mm splenule. Varices are present in the splenic hilum. US/US abdomen limited IMPRESSION: Hepatosplenomegaly. Probable portal venous hypertension.
== END 2023-02-11 11:20 | disposition home or self-care (01) ==
LOC: HO.US 11:19
PROVIDERS: Visit Provider Emergency Medicine
DX: R10.11 Right upper quadrant pain (principal)
CPT/HCPCS: 76705

== ENCOUNTER 2023-04-08 08:27 | Outpatient (REF) | payer MEDICAID, SELFPAY ==
--- NOTE | ~2023-04-08 | CT_ITS ---
EXAMINATION: CT CHEST SCREENING CLINICAL INFORMATION: Former smoker. 40 pack year history. COMPARISON: Previous chest CT December [address] February 2022 TECHNIQUE: Multidetector volumetric CT imaging of the chest is performed without contrast using low dose technique. Additional 2D coronal and sagittal reformatted images and axial 3D maximum intensity projection (MIP) images are generated on the CT workstation. This CT examination was performed using dose optimization techniques as appropriate, variously including the following: *Automated exposure control *Adjustment of mA and/or kV according to patient size (this includes techniques or standardized protocols for targeted exams where dose is matched to indication/reason for exam; i.e. extremities or head) *Use of iterative reconstruction technique DLP: 71 mGy-cm FINDINGS: LUNGS: Mild emphysema. Mild biapical pleural and parenchymal scarring. The lungs are otherwise clear. MEDIASTINUM: The mediastinum is normal. CORONARY ARTERY CALCIFICATION: Mild/moderate PLEURA: There is no pleural effusion. No pleural mass or thickening. AXILLA: No lymphadenopathy. UPPER ABDOMEN: The spleen is enlarged. Question mild cirrhotic changes of the liver. Gallbladder has been removed. OSSEOUS STRUCTURES: Nondisplaced lateral right seventh and eighth rib fractures. These are new in the interval from [address]/CT lung screening IMPRESSION: Mild emphysema and pleural parenchymal scarring. No pulmonary nodule. [id number] coronary artery calcification. Splenomegaly and probable cirrhosis. Right seventh and eighth lateral rib fractures new in the interval from 2021 exam ASSESSMENT: Lung-RADS category 1: Negative RECOMMENDATION: Annual low-dose chest CT follow-up recommended
== END 2023-04-08 08:28 | disposition home or self-care (01) ==
LOC: HO.CT 08:27
PROVIDERS: PCP Family Medicine; Visit Provider Physician Assistant Medical
DX: Z12.2 Encounter for screening for malignant neoplasm of respiratory organs (principal); F17.210 Nicotine dependence, cigarettes, uncomplicated
CPT/HCPCS: 71271

== ENCOUNTER 2023-04-14 13:59 | Outpatient (AMB) | payer MEDICAID, SELFPAY ==
--- NOTE | 2023-04-14 14:04 | A.OFFVIS_ITS ---
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 Industrial Name: Brian rodríguez Allergies No Known Allergies [No Known Allergies*] Allergy (Verified 03/10/23 08:04) Medication List - Last Reconciled 04/14/23 by Miguel Angel Segura MD aspirin 81 mg PO DAILY bisacodyl (Dulcolax (bisacodyl)) 10 mg (2 x 5 mg) PO ONCE 1 day buprenorphine-naloxone 8-2 mg (Suboxone) 10 mg sublingual BID docusate sodium 100 mg PO BID doxepin 10 mg PO BEDTIME ferrous gluconate 324 mg PO DAILY hydrochlorothiazide 25 mg PO DAILY lisinopril 40 mg PO DAILY metoprolol succinate ER 25 mg PO DAILY omeprazole 20 mg PO DAILY polyethylene glycol 3350 (Miralax) 17 grams PO DAILY sennosides (Natural Senna Laxative) 8.6 mg PO BEDTIME ticagrelor (Brilinta) 90 mg PO BID trazodone 150 mg PO BEDTIME HPI HPI Comments History of Present Illness Details Suhail comes for follow-up. 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 He is currently not on statin therapy. He said when he walks fast he does get precordial chest pain similar to prior to stenting. When he walks slow he does not get as month symptoms. He is taking all his medications. Denies any bleeding issues or neurologic events. Denies any heart failure symptoms. [facility] Medical History Chronic hepatitis C Colon polyp, hyperplastic (~2016) History of heroin use Hypertension, essential, benign Insomnia Liver cirrhosis Personal history of nicotine dependence Surgical History History of cholecystectomy (~2020) History of colonoscopy History of esophagogastroduodenoscopy (EGD) Family History Brother Lung cancer Social History Household Members: Family Housing: House Are you a primary healthcare administrative assistant to a significant other at home: No Do you presently have visiting nurse or other home services: No Patient Tobacco Use Status: Former Tobacco user Tobacco use type: Cigarette Cigarette Packs Per Day: 1 Years Smoked: onset 11, 1ppd x 45yrs, 45pyh - QUIT 02/26/2022 service: No Current occupational status: employed Review of Systems Const Denies chills, Denies fatigue, Denies fever(s), Denies frequent falls, Denies weakness, Denies weight gain and Denies weight loss ENT Denies dizziness Card Denies chest pain, Denies leg edema, Denies lightheadedness, Denies palpitations, Denies dyspnea, Denies dyspnea on exertion, Denies orthopnea and Denies other (loss of consciousness) Resp Denies cough, Denies dyspnea and Denies dyspnea on exertion GI Denies hematochezia and Denies change in stool character Musc Denies abnormal gait, Denies muscle weakness, Denies numbness, Denies radiating pain into limb and Denies tingling Neuro Denies abnormal gait, Denies dizziness, Denies frequent falls, Denies numbness, Denies tingling and Denies weakness Endo Denies fatigue and Denies palpitations Physical Exam Vital Signs: Last Vital Signs Pulse 78 04/14/23 14:05 BP 130/64 04/14/23 14:05 BMI result Body Mass Index 33.2 Const General: cooperative, healthy appearing, comfortable and no acute distress Neck Neck: Yes normal visual inspection and Yes no JVD Carotids: normal carotid upstroke Resp Effort & Inspection: normal respiratory effort Auscultation: clear to auscultation bilaterally, no crackles, no rales, no rhonchi and no wheezes Cardio Jugular venous distension: no JVD Rate: regular rate Rhythm: regular rhythm Heart sounds: S1 normal heart sound present, S2 normal heart sound present, no gallops, no murmurs and no rubs Peripheral pulses: Peripheral pulses 2+ throughout Skin General skin exam: no rashes or lesions noted Extrem Other: Right radial catheterization site with easily palpable radial pulse, right hand assessment normal General: Yes normal to inspection Psych Appearance: grossly normal Mental Status: mental status grossly normal Speech and movement: Normal speech and movement present Assessment & Plan Assessment & Plan (1) Exertional chest pain: Code(s): R07.9 - Chest pain, unspecified Plan: Recurrent exertional chest pain in this middle-aged man with stenting of the OM2 branch about 6 months ago. This is concerning for possible restenoses in the stent area. Will start him on isosorbide. Will suggest exercise myocardial perfusion imaging in near future. Further treatment based on the findings. (2) Coronary artery disease: Code(s): I25.10 - Atherosclerotic heart disease of [place] coronary artery without angina pectoris Plan: CAD with drug-eluting stent to the OM 2 branch of the circumflex artery for 100% occlusion. He had improvement in symptoms but now is recurrent symptoms at this point time. Advise stress test as above. Continue dual antiplatelet therapy on interrupted for a total of 1 year. Lifelong aspirin therapy beyond it. I will start him on rosuvastatin 20 mg daily for lipid modification target goal LDL less than 70 mg/dL. Follow-up lipid panel liver panel in 6 weeks time. Blood pressure is currently well optimized. Smoking cessation was applauded. Continue participate in weight loss program. Will follow up in the clinic in 6 weeks time, sooner p.r.n.. Thank you for allowing me to partake in his care Orders: Orders CA stress test Today R07.9 - Chest pain, unspecified NM cardiolite stress test 2 Weeks R07.9 - Chest pain, unspecified Lipid Panel 6 Weeks I25.10 - Atherosclerotic heart disease of [place] coronary artery without angina pectoris Liver Panel 6 Weeks I25.10 - Atherosclerotic heart disease of [place] coronary artery without angina pectoris Medications: New isosorbide mononitrate ER 30 mg PO DAILY 30 tabs 1RF R07.9 - Chest pain, unspecified rosuvastatin (Crestor) 20 mg PO DAILY 30 tabs 5RF R07.9 - Chest pain, unspecified Coding Level of Care Code Est Pt Level 4 (98335) Diagnoses Exertional chest pain R07.9 Coronary artery disease I25.10
[2023-04-14 14:05] VITALS: BP 130/64; PULSE 78; BMI 33.2
== END 2023-04-14 14:29 | disposition home or self-care (01) ==
PROVIDERS: Visit Provider Internal Medicine Cardiovascular Disease
DX: R07.9 Chest pain, unspecified (principal); I25.10 Atherosclerotic heart disease of native coronary artery without angina pectoris
CPT/HCPCS: 99214

== ENCOUNTER → 2023-04-14 13:59 | Outpatient (BNVA) | payer MEDICAID, SELFPAY | PROVIDERS: Visit Provider Internal Medicine Cardiovascular Disease | DX: R07.9 Chest pain, unspecified (principal); I25.10 Atherosclerotic heart disease of native coronary artery without angina pectoris; Z79.899 Other long term (current) drug therapy | CPT/HCPCS: 99212 ==

== ENCOUNTER → 2023-05-01 09:16 | Outpatient (REF) | payer MEDICAID, SELFPAY ==
--- NOTE | ~2023-05-01 | NM_ITS ---
Myocardial perfusion study Indication: Angina with exertion to evaluate for myocardial ischemia Technique: The patient was brought in for a Lexiscan perfusion study on 05/01/2023. Patient performed low-level exercise and was injected 0.4 mg of Lexiscan intravenously. Within a minute of injection, 35 mCi of sestamibi was given intravenously. Images were obtained using the SPECT gamma camera interlaced with the gating device. Images were obtained in supine position. Resting perfusion study was performed on 05/16/2023. Patient was administered 35 mCi of sestamibi intravenously at rest. Images were then obtained in supine position. Images obtained with and without CT attenuation. Total DLP 43 mGy-cm. Images were processed with the software and compared side to side in short axis, horizontal long axis and vertical long axis views. Findings: The stress perfusion study showed non attenuated images absent uptake in the basal and mid inferior wall of the LV myocardium with severely reduced uptake in the basal and mid inferolateral as well as the basal lateral wall of the LV myocardium. Remainder of the LV myocardium is normally perfused. Attenuation corrected images shows also absent uptake in the basal and mid inferior wall as well as moderate to severely reduced uptake in the basal and mid inferolateral and basal lateral wall of the LV myocardium.. The gated study shows normal LV systolic function with calculated LVEF of 72%. LV cavity is mildly dilated size. The gated study shows normal wall thickening except for the basal inferior wall wall thickening and contraction of segments. Resting study shows improved uptake in the inferolateral wall with partially improved uptake in the basal and mid inferior wall, on both attenuated as well as non attenuated corrected images. Gating at rest reveals normal systolic wall motion with ejection fraction at greater than 60%. The findings are consistent with likely severe ischemia of the basal and mid inferior wall and moderate intensity ischemia of the basal and mid inferolateral wall of the LV myocardium.. NM/NM cardiolite stress test Impression: 1. Myocardial perfusion imaging study shows severe ischemia in the RCA territory and moderate ischemia in the circumflex territory 2. Gated LVEF is 72% 3. Transient ischemic dilatation present EKG is nondiagnostic for ischemia, however with exercise he had symptoms of angina and severe shortness of breath
--- NOTE | 2023-05-01 09:20 | CA_ITS ---
Acquisition Time: 2023-05-01 10:00:42 Total Exercise Time: 00:02:19 Test Indications: CHEST PAIN Medications: SEE H Protocol: GARRET Max HR: 126 BPM 78% of Pred: 161 BPM Max BP: 162/088 mmHG Max Work Load: 4.6 METS Exercise stress test exercise 2 min 19 sec of Garret protocol achieving 77% MPHR, with request to stop due to chest pain, fatigue, and SOB, with 8/10 chest discomfort, moderate to severe SOB, isolated PACs and PVCs, with normotensive response to exercise, without EKG changes. Patient assisted to chair. Breathing and chest pain resolved with rest. Test changed to pharmacological stress test with Lexiscan injection while sitting and kicking his legs. without anginal symptoms, with isolated PACs and PVCs, with normotensive response to injection, with non-diagnositic EKGs. Nuclear images pending, Test reviewed with Dr. Cartwright. Referred By: Miguel Angel Segura Overread By: Sunita Dixon
== END ==
LOC: HO.CARD 09:16
PROVIDERS: Absent Provider Family Medicine; PCP Family Medicine; Visit Provider Internal Medicine Cardiovascular Disease
DX: R07.9 Chest pain, unspecified (principal)
CPT/HCPCS: 78452; 93017; A9500; J0280; J2785

== ENCOUNTER → 2023-05-01 09:20 | Outpatient (BNV) | payer MEDICAID, SELFPAY | PROVIDERS: Absent Provider Family Medicine; PCP Family Medicine; Visit Provider Nurse Practitioner | DX: I20.9 Angina pectoris, unspecified (principal) | CPT/HCPCS: 78452; 93016; 93018 ==

== ENCOUNTER 2023-05-16 | Outpatient (REF) | payer MEDICAID, SELFPAY ==
[2023-05-16 16:59] LABS: Hematocrit 35.5 % (42.0-52.0); Hemoglobin 11.7 g/dl (14.0-18.0); Mean Corpuscular Hemoglobin 27.2 pg (27.0-33.0); Mean Corpuscular Volume 82.6 fL (80.0-98.0); Mean Platelet Volume 10.5 fL (9.4-12.4); Red Cell Distribution Width 15.6 % (11.0-16.0); White Blood Count 6.1 X10*3/uL (4.8-10.8)
[2023-05-16 17:01] LABS: Platelet Count 60 X10*3/uL (160-400)
[2023-05-16 17:05] LABS: Anion Gap 10 (12-20); Blood Urea Nitrogen 27 mg/dL (9-16); Calcium 10.3 mg/dL (8.4-10.2); Carbon Dioxide 32 mmol/L (22-29); Chloride 103 mmol/L (96-108); Estimated Glomerular Filt Rate > 60; Glucose Random 112 mg/dL (60-115); Potassium 5.4 mmol/L (3.3-5.1); Sodium 140 mmol/L (135-145)
[2023-05-16 17:07] LABS: INTERNATIONAL NORM RATIO 1.1 (0.9-1.1); Prothrombin Time 13.1 SEC (11.1-13.3)
== END 2023-05-16 00:01 | disposition home or self-care (01) ==
LOC: HO.LAB
PROVIDERS: Visit Provider Internal Medicine Cardiovascular Disease
DX: R07.9 Chest pain, unspecified (principal)
CPT/HCPCS: 36415; 80048; 85027; 85610

== ENCOUNTER → 2023-05-22 23:59 | Outpatient (BNV) | payer MEDICAID, SELFPAY | PROVIDERS: PCP Family Medicine; Visit Provider Internal Medicine Cardiovascular Disease | DX: I20.8 Other forms of angina pectoris (principal); I25.118 Atherosclerotic heart disease of native coronary artery with other forms of angina pectoris | CPT/HCPCS: 92928; 93458; 99152 ==

== ENCOUNTER 2023-05-29 09:08 | Outpatient (AMB) | payer MEDICAID, SELFPAY ==
--- NOTE | 2023-05-29 09:24 | MHC.OFFVIS ---
Intake Vital Signs 05/29/23 09:30 Height 5 ft 9 in Weight 224 lb BMI 33.1 BP 130/72 Blood Pressure Location Rt brachial Position Sitting Pulse 67 Intake Visit Reasons: f/u after cath Intake Note: f/up cath Allergies No Known Allergies [No Known Allergies*] Allergy (Verified 05/29/23 09:32) Medication List - Last Reconciled 05/29/23 by Socorro Isaacs, PB-C aspirin 81 mg PO DAILY bisacodyl (Dulcolax (bisacodyl)) 10 mg (2 x 5 mg) PO ONCE 1 day buprenorphine-naloxone 8-2 mg (Suboxone) 10 mg sublingual BID docusate sodium 100 mg PO BID doxepin 10 mg PO BEDTIME ferrous gluconate 324 mg PO DAILY hydrochlorothiazide 25 mg PO DAILY isosorbide mononitrate ER 30 mg PO DAILY lisinopril 40 mg PO DAILY metoprolol succinate ER 25 mg PO DAILY omeprazole 20 mg PO DAILY polyethylene glycol 3350 (Miralax) 17 grams PO DAILY rosuvastatin (Crestor) 20 mg PO DAILY sennosides (Natural Senna Laxative) 8.6 mg PO BEDTIME ticagrelor (Brilinta) 90 mg PO BID trazodone 150 mg PO BEDTIME HPI f/u after cath HPI Details Suhail is a 58-year-old male with past medical history hypertension, hyperlipidemia, CAD, OM to stent who recently reported chest discomfort and had abnormal nuclear stress test. He then underwent a cardiac catheterization and showed CT of the left circumflex stent and right PAV 99% stenosis, KERMIT placed. Today he reports he has been doing very well since his procedure. He no longer has any chest discomfort. He reports good activity tolerance and is asking to go back to work. 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 Denies having shortness of breath, palpitations, PND, orthopnea or edema. No dizziness, presyncope, syncope, falls. Right radial catheterization site is feeling good. No reports of bleeding. Significant other and family member is present. There assisting with Chinese interpretation their request. [facility] Medical History (Updated 05/29/23 @ 11:36 by Socorro Isaacs, WORKERS COMPENSATION ADMINISTRATOR-C) Chronic hepatitis C Colon polyp, hyperplastic (~2017) History of heroin use Hypertension, essential, benign Insomnia Liver cirrhosis Nicotine dependence, cigarettes, uncomplicated Surgical History History of cardiac cath (~2021) History of cholecystectomy (~2020) History of colonoscopy History of esophagogastroduodenoscopy (EGD) History of heart artery stent (~2021) Family History Brother Lung cancer Social History Household Members: Family Housing: House Are you a primary long term acute care registered nurse to a significant other at home: No Do you presently have visiting nurse or other home services: No Patient Tobacco Use Status: Former Tobacco user Tobacco use type: Cigarette Cigarette Packs Per Day: 1 Years Smoked: onset 11, 1ppd x 45yrs, 45pyh - QUIT 02/26/2022 service: No Current occupational status: employed Review [employer] Systems ENT Reports dizziness Card Denies chest pain, Denies chest pain at rest, Denies chest pain with activity, Denies rapid heart rate, Denies pedal edema, Denies edema, Denies leg edema, Denies lightheadedness, Denies palpitations, Denies dyspnea, Denies dyspnea on exertion and Denies orthopnea Resp Denies cough, Denies dyspnea and Denies dyspnea on exertion GI Denies hematochezia and Denies change in stool character Musc Denies abnormal gait, Reports limited range of motion, Reports muscle cramps, Denies muscle weakness, Denies numbness, Denies radiating pain into limb, Denies stiffness and Denies tingling Neuro Denies abnormal gait, Reports dizziness, Denies numbness and Denies tingling Endo Denies palpitations Physical Exam Vital Signs: Last Vital Signs Pulse 67 05/29/23 09:30 BP 130/72 05/29/23 09:30 BMI result Body Mass Index 33.1 Assessment & Plan Assessment & Plan (1) Coronary artery disease: Comment: (KERMIT to OM2 - 08/2022) Code(s): I25.10 - Atherosclerotic heart disease of [place] coronary artery without angina pectoris Plan: Known history of CAD with KERMIT to OM2 08/2022. On follow-up visit he reported chest discomfort similar to prior angina. He underwent a nuclear stress test on 05/16/2023 showing severe RCA ischemia, moderate left circumflex ischemia. 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 Balloon angioplasty and stent placed. Today he reports resolution of his symptoms. He denies any angina. He is asking to go back to work which he describes as only light activity. He operates a machine. There is no heavy lifting or frequent walking involved. Will give him note however informed that he will need to attend cardiac rehab. Cardiac rehab ordered. It will be important to see whether he has recurrent anginal symptoms with exertional activities. At present continue aspirin indefinitely. Continue Brilinta uninterrupted for at least 1 year. Continue dual antianginals with isosorbide and metoprolol XL. Continue rosuvastatin with LDL goal less than 70. Continue hydrochlorothiazide, lisinopril, metoprolol XL for good heart rate and blood pressure control. Blood pressure today 130/72. Signs and symptoms of angina discussed. Instructed to call us for any recurrent symptoms. Emergency care if needed for symptoms. Cardiology follow-up in 3 months, sooner if needed (2) S/P cardiac catheterization: Comment: 05/22/2023, left main normal, lad distal 50% stenosis, left circumflex ET 0 in stent AV groove, [id number] collaterals, right PA V, proximal 99% stenosis, balloon angioplasty and stent placed Code(s): Z98.890 - Other specified postprocedural states (3) Exertional chest pain: Code(s): R07.9 - Chest pain, unspecified Plan: Resolved (4) Hypertension, essential, benign: Code(s): I10 - Essential (primary) hypertension Plan: Well controlled (5) Hyperlipidemia: Code(s): E78.5 - Hyperlipidemia, unspecified Plan: [place] LDL goal less than 70 in patient with CAD. No recent lipid profile in our system. Follows with outside PCP. Will forward this note to his provider. Recommend lipids be checked. Orders: Orders Cardiac Rehab Today I25.10 - Atherosclerotic heart disease of [place] coronary artery without angina pectoris, Z95.5 - Presence of coronary angioplasty implant and graft, Z98.890 - Other specified postprocedural states Medications: Changed From ticagrelor (Brilinta) 90 mg PO BID To ticagrelor (Brilinta) 90 mg PO BID 90 days 180 tabs 3RF Coding Level of Care Code Est Pt Level 4 (39808) Diagnoses Coronary artery disease I25.10 S/P cardiac catheterization Z98.890 Exertional chest pain R07.9 Hypertension, essential, benign I10 Hyperlipidemia E78.5 Time Spent (min) 28 Comment Chart review, documentation, interview, assessment
[2023-05-29 09:30] VITALS: BP 130/72; PULSE 67; BMI 33.1
== END 2023-05-29 09:56 | disposition home or self-care (01) ==
PROVIDERS: PCP Family Medicine; Referring Provider Family Medicine; Visit Provider Nurse Practitioner Family
DX: I25.10 Atherosclerotic heart disease of native coronary artery without angina pectoris (principal); Z98.890 Other specified postprocedural states; R07.9 Chest pain, unspecified; I10 Essential (primary) hypertension; E78.5 Hyperlipidemia, unspecified
CPT/HCPCS: 99214

== ENCOUNTER → 2023-05-29 09:08 | Outpatient (BNVA) | payer MEDICAID, SELFPAY | PROVIDERS: PCP Family Medicine; Referring Provider Family Medicine; Visit Provider Nurse Practitioner Family | DX: I25.10 Atherosclerotic heart disease of native coronary artery without angina pectoris (principal); I10 Essential (primary) hypertension; E78.5 Hyperlipidemia, unspecified; Z79.82 Long term (current) use of aspirin; Z79.899 Other long term (current) drug therapy; Z98.890 Other specified postprocedural states | CPT/HCPCS: 99212 ==

== ENCOUNTER 2023-06-18 08:59 | Outpatient (REF) | payer MEDICAID, SELFPAY ==
[2023-06-22 22:09] LABS: Testosterone, Free 29.4 pg/mL (35.0-155.0); Testosterone, Total 249 ng/dL (250-1100)
== END 2023-06-18 09:00 | disposition home or self-care (01) ==
LOC: HO.CHCLDS 08:59
PROVIDERS: Visit Provider Family Medicine
DX: E29.1 Testicular hypofunction (principal)
CPT/HCPCS: 36415; 84402; 84403

== ENCOUNTER 2023-09-02 15:01 | Outpatient (AMB) | payer MEDICAID, SELFPAY ==
--- NOTE | 2023-09-02 15:03 | A.OFFVIS_ITS ---
Intake Vital Signs 09/02/23 15:04 Height 5 ft 9 in Weight 248 lb 3.848 oz BMI 36.7 BP 130/80 Blood Pressure Location Lt brachial Position Sitting Pulse 68 Pulse Source Pulse Oximeter Intake Visit Reasons: 3 month follow up Intake Note: 3 month f/up patient its fine Academic Support Director Required: Yes Academic Support Director Name: Jenny/marcos Accompanied by: Spouse Allergies No Known Allergies [No Known Allergies*] Allergy (Verified 09/02/23 15:07) Medication List - Last Reconciled 09/02/23 by Miguel Angel Segura MD aspirin 81 mg PO DAILY bisacodyl (Dulcolax (bisacodyl)) 10 mg (2 x 5 mg) PO ONCE 1 day buprenorphine-naloxone 8-2 mg (Suboxone) 10 mg sublingual BID docusate sodium 100 mg PO BID doxepin 10 mg PO BEDTIME ferrous gluconate 324 mg PO DAILY hydrochlorothiazide 25 mg PO DAILY isosorbide mononitrate ER 30 mg PO DAILY lisinopril 40 mg PO DAILY metoprolol succinate ER 25 mg PO DAILY omeprazole 20 mg PO DAILY polyethylene glycol 3350 (Miralax) 17 grams PO DAILY rosuvastatin (Crestor) 20 mg PO DAILY sennosides (Natural Senna Laxative) 8.6 mg PO BEDTIME ticagrelor (Brilinta) 90 mg PO BID 90 days trazodone 150 mg PO BEDTIME HPI HPI Comments History of Present Illness Details Suhail comes for follow-up, accompanied by his . History was obtained with help of agronomy supervisor. Patient says since his stenting is doing very well. He has had no recurrent chest discomfort. Participate in regular physical activity but does not go to cardiac rehab. He takes all his medications. No bleeding issues or neurologic events. Has start smoking. No heart failure symptoms. No prolonged palpitations irregular heartbeat. [facility] Medical History (Updated 09/02/23 @ 15:27 by Miguel Angel Segura MD) Nicotine dependence, cigarettes, uncomplicated Colon polyp, hyperplastic (~2016) Insomnia Liver cirrhosis History of heroin use Chronic hepatitis C Hypertension, essential, benign Surgical History History of heart artery stent (~2021) History of cardiac cath (~2021) History of cholecystectomy (~2020) History of esophagogastroduodenoscopy (EGD) History of colonoscopy Family History Brother Lung cancer Social History Household Members: Family Housing: House Are you a primary career services director to a significant other at home: No Do you presently have visiting nurse or other home services: No Patient Tobacco Use Status: Former Tobacco user Tobacco use type: Cigarette Cigarette Packs Per Day: 1 Years Smoked: onset 11, 1ppd x 45yrs, 45pyh - QUIT 02/26/2022 service: No Current occupational status: employed [employer] Reports chills, Reports fatigue, Reports fever(s), Reports frequent falls, Reports weakness, Reports weight gain and Reports weight loss ENT Reports dizziness Card Reports chest pain, Reports leg edema, Reports lightheadedness, Reports palpitations, Reports dyspnea and Reports dyspnea on exertion Resp Reports cough, Reports dyspnea and Reports dyspnea on exertion GI Reports hematochezia Musc Reports abnormal gait, Reports muscle weakness, Reports numbness, Reports radiating pain into limb and Reports tingling Neuro Reports abnormal gait, Reports dizziness, Reports frequent falls, Reports numbness, Reports tingling and Reports weakness Endo Reports fatigue and Reports palpitations Physical Exam Vital Signs: Last Vital Signs Pulse 68 09/02/23 15:04 BP 130/80 09/02/23 15:04 BMI result Body Mass Index 36.7 Const General: cooperative, healthy appearing, comfortable and no acute distress Neck Neck: Yes normal visual inspection and Yes no JVD Carotids: normal carotid upstroke Resp Effort & Inspection: normal respiratory effort Auscultation: clear to auscultation bilaterally, no crackles, no rales, no rhonchi and no wheezes Cardio Jugular venous distension: no JVD Rate: regular rate Rhythm: regular rhythm Heart sounds: S1 normal heart sound present, S2 normal heart sound present, no gallops, no murmurs and no rubs Peripheral pulses: Peripheral pulses 2+ throughout Skin General skin exam: no rashes or lesions noted Extrem Other: Right radial catheterization site with easily palpable radial pulse, right hand assessment normal General: Yes normal to inspection Psych Appearance: grossly normal Mental Status: mental status grossly normal Speech and movement: Normal speech and movement present Assessment & Plan Assessment & Plan (1) Coronary artery disease: Comment: (KERMIT to OM2 - 08/2022), KERMIT to RPLV, April 2023 Code(s): I25.10 - Atherosclerotic heart disease of [place] coronary artery without angina pectoris Plan: CAD with repeat stenting to the RPLV branch. He had stents prior to the OM 1 branch. Currently with resolved symptoms of angina since stenting. He has start smoking. Advise continue dual antiplatelet therapy uninterrupted till April of 2024. Colonoscopy will need to be postponed after that. Continue high-intensity statin therapy. Advised lipid panel near future to target goal LDL closer to 60 mg/dL. Continue aggressive blood pressure control. (2) Hypertension, essential, benign: Code(s): I10 - Essential (primary) hypertension Plan: Hypertension which is currently well optimized advised to monitor blood pressure at home maintain a log. Goal blood pressure less than 130/84. Low-salt diet was discussed. Continue heart healthy lifestyle with regular physical activity and weight loss program. Will follow up in the clinic in 6 months time, sooner p.r.n.. Thank you for allowing me to partake in his care Coding Level of Care Code Est Pt Level 4 (23089) Diagnoses Coronary artery disease I25.10 Hypertension, essential, benign I10
[2023-09-02 15:04] VITALS: BP 130/80; PULSE 68; BMI 36.7
== END 2023-09-02 15:27 | disposition home or self-care (01) ==
PROVIDERS: PCP Family Medicine; Visit Provider Internal Medicine Cardiovascular Disease
DX: I25.10 Atherosclerotic heart disease of native coronary artery without angina pectoris (principal); I10 Essential (primary) hypertension
CPT/HCPCS: 99214

== ENCOUNTER → 2023-09-02 15:01 | Outpatient (BNVA) | payer MEDICAID, SELFPAY | PROVIDERS: PCP Family Medicine; Visit Provider Internal Medicine Cardiovascular Disease | DX: I25.10 Atherosclerotic heart disease of native coronary artery without angina pectoris (principal); I10 Essential (primary) hypertension | CPT/HCPCS: 99212 ==

== ENCOUNTER 2023-09-09 08:21 | Outpatient (REF) | payer MEDICAID, SELFPAY ==
[2023-09-09 09:14] LABS: MANUAL DIFF FLAG NO
[2023-09-09 09:19] LABS: Basophils Percent Auto 0.6 % (0-2); Eosinophils Absolute Auto 0.1 X10*3/uL (0.0-0.4); Eosinophils Percent Auto 1.6 % (0-4); Hematocrit 35.8 % (42.0-52.0); Hemoglobin 11.8 g/dl (14.0-18.0); Imm Gran Abs Auto 0.04 X10*3/uL (0.00-0.03); Imm Gran Pct Auto 0.6 % (0.0-0.4); Lymphocytes Absolute Auto 2.8 X10*3/uL (1.2-4.9); Lymphocytes Percent Auto 44.7 % (20-40); Mean Corpuscular Hemoglobin 28.7 pg (27.0-33.0); Mean Corpuscular Volume 87.1 fL (80.0-98.0); Mean Platelet Volume 10.8 fL (9.4-12.4); Monocytes Absolute Auto 0.5 X10*3/uL (0.1-1.2); Neutrophils Absolute Auto 2.8 x10*3/uL (2.0-8.3); Neutrophils Percent Auto 44.5 % (45-73); Platelet Count 62 X10*3/uL (160-400); Red Blood Count 4.11 X10*6/uL (4.60-5.80); Red Cell Distribution Width 13.9 % (11.0-16.0); White Blood Count 6.2 X10*3/uL (4.8-10.8)
[2023-09-09 09:41] LABS: Alanine Aminotransferase 24 U/L (0-40); Albumin Level 4.4 g/dL (3.5-5.0); Alkaline Phosphatase 73 U/L (39-117); Anion Gap 13 (12-20); Aspartate Amino Transferase 27 U/L (5-37); Bilirubin Total 0.4 mg/dL (0.0-1.0); Blood Urea Nitrogen 22 mg/dL (9-16); Calcium 9.8 mg/dL (8.4-10.2); Carbon Dioxide 31 mmol/L (22-29); Chloride 101 mmol/L (96-108); Estimated Glomerular Filt Rate > 60; Glucose Random 157 mg/dL (60-115); Iron 80 mcg/dL (45-160); Magnesium 1.9 mg/dL (1.6-2.6); Percent Iron Saturation 23 % (15-50); Potassium 4.6 mmol/L (3.3-5.1); Sodium 140 mmol/L (135-145); Total Iron Binding Capacity 349 mcg/dL (228-428); Unsaturated Iron Binding 269 ug/dL
[2023-09-09 09:55] LABS: Ferritin 90 ng/mL (20-250); TSH reflex Free T4 0.62 uIU/mL (0.32-4.0)
[2023-09-13 17:28] LABS: Testosterone, Free 26.3 pg/mL (35.0-155.0); Testosterone, Total 241 ng/dL (250-1100)
== END 2023-09-09 08:22 | disposition home or self-care (01) ==
LOC: HO.CHCLDS 08:21
PROVIDERS: Visit Provider Family Medicine
DX: I10 Essential (primary) hypertension (principal); R16.1 Splenomegaly, not elsewhere classified; D64.9 Anemia, unspecified; R53.83 Other fatigue; E29.1 Testicular hypofunction
CPT/HCPCS: 36415; 80053; 82728; 83540; 83735; 84402; 84403; 84443; 85025

== ENCOUNTER 2023-09-23 11:05 | Outpatient (AMB) | payer MEDICAID, SELFPAY ==
--- NOTE | 2023-09-23 11:06 | A.OFFVIS_ITS ---
Intake Vital Signs 09/23/23 11:14 Height 5 ft 9 in Weight 253 lb BMI 37.4 BP 138/80 Blood Pressure Location Rt brachial Position Sitting Pulse 71 Intake Visit Reasons: Mass~RT forearm Intake Note: Patient referred by Dr. Izquierdo for enlarging mass on Rt forearm. Reports mass has been present for 5-6yrs. Patient c/o: mass has been enlarging, numbing sensation, pain. Agronomy Instructor Required: No Accompanied by: Spouse Allergies No Known Allergies [No Known Allergies*] Allergy (Verified 09/23/23 11:13) HPI HPI Comments History of Present Illness Details Patient presents with a friend for evaluation of a proximal forearm mass. He has had this approximately 6 years time. He also has some nonspecific numbness of his middle digits. He does not recall any trauma to the area. He has no such mass elsewhere. Her patient presents here for further evaluation. Chart was reviewed patient evaluate [facility] Medical History Nicotine dependence, cigarettes, uncomplicated Colon polyp, hyperplastic (~2016) Insomnia Liver cirrhosis History of heroin use Chronic hepatitis C Hypertension, essential, benign Surgical History History of heart artery stent (~2021) History of cardiac cath (~2021) History of cholecystectomy (~2020) History of esophagogastroduodenoscopy (EGD) History of colonoscopy Family History Brother Lung cancer Social History Household Members: Family Housing: House Are you a primary emergency care attendant to a significant other at home: No Do you presently have visiting nurse or other home services: No Patient Tobacco Use Status: Former Tobacco user Tobacco use type: Cigarette Cigarette Packs Per Day: 1 Years Smoked: onset 11, 1ppd x 45yrs, 45pyh - QUIT 02/26/2022 service: No Current occupational status: employed Physical Exam Vital Signs: Last Vital Signs Pulse 71 09/23/23 11:14 BP 138/80 09/23/23 11:14 BMI result Body Mass Index 37.4 Extrem Other: Dorsal aspect proximal forearm fullness suggestive of possible deeply situated lipoma. Extremities grossly neurovascularly intact. No axillary adenopathy. Contralateral side within normal limits. Assessment & Plan Assessment & Plan (1) Mass of right forearm: Code(s): R22.31 - Localized swelling, mass and lump, right upper limb Plan: Current plan is to arrange for for ultrasound of the symptomatic area and direct further therapy based on these results. Patient will see me after this. All questions answered Orders: Orders US biopsy subcutaneous skin Today R22.31 - Localized swelling, mass and lump, right upper limb Coding Level of Care Code New Pt Level 4 (80344) Diagnoses Mass of right forearm R22.31
[2023-09-23 11:14] VITALS: BP 138/80; PULSE 71; BMI 37.4
== END 2023-09-23 11:26 | disposition home or self-care (01) ==
PROVIDERS: PCP Family Medicine; Referring Provider Internal Medicine Medical Oncology; Visit Provider Surgery
DX: R22.31 Localized swelling, mass and lump, right upper limb (principal)
CPT/HCPCS: 99204

== ENCOUNTER → 2023-09-23 11:05 | Outpatient (BNVA) | payer MEDICAID, SELFPAY | PROVIDERS: PCP Family Medicine; Referring Provider Internal Medicine Medical Oncology; Visit Provider Surgery | DX: R22.31 Localized swelling, mass and lump, right upper limb (principal) | CPT/HCPCS: 99202 ==

== ENCOUNTER 2023-10-01 15:01 | Outpatient (AMB) | payer MEDICAID, SELFPAY ==
--- NOTE | 2023-10-01 15:04 | MHC.OFFVIS ---
Intake Vital Signs 10/01/23 15:06 Height 5 ft 9 in Weight 253 lb 8.505 oz BMI 37.4 BP 158/75 H Blood Pressure Location Lt brachial Position Sitting Pulse 74 Intake Visit Reasons: Gerd Intake Note: Suhali presents in the office as a new patient for GERD. CC: He states that he is having some acid reflux at times and he takes a medication for that. Community Youth Secretary Required: No Community Youth Secretary Name: Allergies No Known Allergies [No Known Allergies*] Allergy (Verified 10/01/23 15:06) HPI Gerd HPI Details LAST VISIT GERD (gastroesophageal reflux disease) Continue avoiding dietary triggers in late night snacking. Continue with omeprazole daily. Staying upright for minimum 3 hours after meals discussed with patient. Chronic idiopathic constipation History of chronic constipation. Patient is also on Suboxone and on iron. I will start him on MiraLax and senna. If patient will have no success taking 1 senna he can start taking 2 every evening. I will see him in 6 months, sooner on as needed basis. Patient is agreeable to this plan and verbalizes understanding of instructions. He was given the opportunity to ask questions and all questions answered. ? Thank you for allowing me to participate in his care Plan Medications New polyethylene glycol 3350 (Miralax) 17 grams PO DAILY 510 grams 2RF sennosides (Natural Senna Laxative) 8.6 mg PO BEDTIME 90 tabs 3RF constipation K59.00 Refilled omeprazole 20 mg PO DAILY 90 caps 3RF K21.9 Discontinued lactulose (Kristalose) Discontinued Reason: Patient no longer taking 20 grams PO DAILY PRN 30 ea 0RF constipation TODAYS VISIT: Patient is here today for follow-up and to discuss going for colonoscopy. Patient is accompanied by his . Patient had drug-eluting stent placed on May 22 and recommendation was made to wait for colonoscopy for at least 9 months which means that patient will be cleared to go in January. Last colonoscopy had multiple polyps all hyperplastic. This was done in August of 2017. Patient denies any melena, hematochezia, unintentional weight loss or ribbon like stools. Patient denies any dyspepsia, dysphagia or odynophagia. Currently patient is taking omeprazole every morning and his symptoms of acid reflux are suppressed. Patient is taking Senokot 2 tablets every evening and reports that he is moving his bowels better. Patient states that occasionally he will have constipation, however that does not happen often. Patient denies any other GI concerning symptoms. Reports to have good appetite. 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 [facility] Medical History Nicotine dependence, cigarettes, uncomplicated Colon polyp, hyperplastic (~2016) Insomnia Liver cirrhosis History of heroin use Chronic hepatitis C Hypertension, essential, benign Surgical History History of heart artery stent (~2021) History of cardiac cath (~2021) History of cholecystectomy (~2020) History of esophagogastroduodenoscopy (EGD) History of colonoscopy Family History Brother Lung cancer Social History Household Members: Family Housing: House Are you a primary director day care center to a significant other at home: No Do you presently have visiting nurse or other home services: No Patient Tobacco Use Status: Former Tobacco user Tobacco use type: Cigarette Cigarette Packs Per Day: 1 Years Smoked: onset 11, 1ppd x 45yrs, 45pyh - QUIT 02/26/2022 service: No Current occupational status: employed [employer] Denies weight gain and Denies weight loss ENT Reports no additional complaints, Denies dysphagia and Denies odynophagia Card Reports no additional complaints Resp Reports no additional complaints GI Denies abdominal pain, Denies belching, Denies melena, Denies bloating, Denies change in bowel habits, Reports constipation, Denies dysphagia, Denies excessive flatus, Denies dyspepsia, Reports heartburn, Denies diarrhea, Denies loose stools, Denies nausea, Denies odynophagia and Denies vomiting Reports no additional complaints Musc Reports no additional complaints Neuro Reports no additional complaints Psych Reports no additional complaints Endo Reports no additional complaints Physical Exam Vital Signs: Last Vital Signs Pulse 74 10/01/23 15:06 BP 158/75 H 10/01/23 15:06 BMI result Body Mass Index 37.4 Const General: healthy appearing, no acute distress and well developed Nutritional Appearance: well nourished Orientation/consciousness: patient oriented x3 HEENT Head: Yes normal to inspection, Yes normocephalic and Yes atraumatic Face and sinus: Yes normal facial exam Mouth: Normal oral and palatal mucosa present Throat: Yes posterior oropharynx normal, Yes tonsils normal and Yes uvula midline Eyes General: appearance normal, both eyes and all related structures Neck Neck: Yes normal visual inspection, Yes full ROM and Yes trachea midline Thyroid: Thyroid normal Resp Effort & Inspection: normal respiratory effort, able to speak in complete sentences, no tracheal deviation and symmetric chest movement Auscultation: clear to auscultation bilaterally Cardio Rate: regular rate GI Inspection: Yes normal to inspection and No distended Palpation (GI): Soft to palpation, not firm, nontender and No hepatosplenomegaly present Auscultation: normal bowel sounds General: Yes no CVA tenderness Back/Spine/Pelvis Back: no CVA tenderness Skin General skin exam: elasticity normal, turgor normal and dry skin Neuro General: patient oriented x3 Psych Appearance: grossly normal Mental Status: mental status grossly normal Assessment & Plan Assessment & Plan (1) GERD (gastroesophageal reflux disease): Code(s): K21.9 - Gastro-esophageal reflux disease without esophagitis Qualifiers: Esophagitis presence: esophagitis presence not specified Qualified Code(s): K21.9 - Gastro-esophageal reflux disease without esophagitis (2) Chronic idiopathic constipation: Code(s): K59.04 - Chronic idiopathic constipation Plan Patient will continue taking omeprazole every morning. Continue lactulose at bedtime and continue senna and Colace. Patient will return in December so we can discuss going for colonoscopy. Patient was encouraged to take his Brilinta as prescribed. Patient is agreeable to plan of care and verbalizes understanding of instructions. He was given the opportunity to ask questions and all questions answered. Thank you for allowing me to participate in his care Medications: Changed From sennosides (Natural Senna Laxative) 8.6 mg PO BEDTIME 90 tabs 3RF constipation K59.00 - Constipation, unspecified To sennosides (Natural Senna Laxative) 17.2 mg (2 x 8.6 mg) PO BEDTIME 180 tabs 2RF constipation K59.00 - Constipation, unspecified Refilled docusate sodium 100 mg PO BID 60 caps 3RF K59.00 - Constipation, unspecified omeprazole 20 mg PO DAILY 90 caps 3RF K21.9 - Gastro-esophageal reflux disease without esophagitis Discontinued polyethylene glycol 3350 (Miralax) Discontinued Reason: Doctor's Order 17 grams PO DAILY 510 grams 2RF Coding Level of Care Code Est Pt Level 4 (03546) Diagnoses Gastroesophageal reflux disease, unspecified whether esophagitis present K21.9 Esophagitis presence: esophagitis presence not specified Chronic idiopathic constipation K59.04 Time Spent (min) 35 Comment 20 minutes spent with patient and additional 15 minutes spent reviewing his records
[2023-10-01 15:06] VITALS: BP 158/75; PULSE 74; BMI 37.4
== END 2023-10-01 15:43 | disposition home or self-care (01) ==
PROVIDERS: PCP Family Medicine; Visit Provider Nurse Practitioner Family
DX: K21.9 Gastro-esophageal reflux disease without esophagitis (principal); K59.04 Chronic idiopathic constipation
CPT/HCPCS: 99214

== ENCOUNTER → 2023-10-01 15:01 | Outpatient (BNVA) | payer MEDICAID, SELFPAY | PROVIDERS: PCP Family Medicine; Visit Provider Nurse Practitioner Family | DX: K21.9 Gastro-esophageal reflux disease without esophagitis (principal); K59.04 Chronic idiopathic constipation | CPT/HCPCS: 99212 ==

== ENCOUNTER 2023-10-23 16:10 | Outpatient (REF) | payer MEDICAID, SELFPAY ==
--- NOTE | ~2023-10-23 | US_ITS ---
EXAMINATION: Ultrasound of right forearm. INDICATION: Palpable right forearm lump Comparison: Ultrasound of right forearm 0.30 222. TECHNIQUE: Real-time ultrasound examination of dorsal proximal right forearm over the site of palpable lump. FINDINGS: Targeted ultrasound examination of dorsal proximal right forearm over the site of palpable lump shows normal muscular tissue and subcutaneous fat lobules. No focal mass lesion or abnormal fluid collection can be found. US/US extremity nonvascular padgett IMPRESSION: 1. Unchanged negative targeted ultrasound examination. No focal mass lesion or abnormal fluid collection can be found in the proximal right forearm over the site of palpable lump. 2. If patient has persistent symptoms, cross-sectional imaging with contrast-enhanced MRI or CT scan may be helpful for further clarification.
== END 2023-10-23 16:11 | disposition home or self-care (01) ==
LOC: HO.US 16:10
PROVIDERS: PCP Family Medicine; Visit Provider Surgery
DX: R22.31 Localized swelling, mass and lump, right upper limb (principal)
CPT/HCPCS: 76882

== ENCOUNTER 2023-11-03 13:43 | Outpatient (REF) | payer MEDICAID, SELFPAY ==
[2023-11-03 14:50] LABS: MANUAL DIFF FLAG NO
[2023-11-03 14:55] LABS: Basophils Percent Auto 0.3 % (0-2); Eosinophils Absolute Auto 0.1 X10*3/uL (0.0-0.4); Eosinophils Percent Auto 1.4 % (0-4); Hematocrit 33.7 % (42.0-52.0); Hemoglobin 11.9 g/dl (14.0-18.0); Imm Gran Abs Auto 0.03 X10*3/uL (0.00-0.03); Imm Gran Pct Auto 0.5 % (0.0-0.4); Lymphocytes Percent Auto 52.2 % (20-40); Mean Corpuscular HGB Conc 35.3 g/dl (31.0-36.0); Mean Corpuscular Hemoglobin 29.9 pg (27.0-33.0); Mean Corpuscular Volume 84.7 fL (80.0-98.0); Mean Platelet Volume 11.5 fL (9.4-12.4); Monocytes Absolute Auto 0.5 X10*3/uL (0.1-1.2); Monocytes Percent Auto 7.8 % (2-11); Neutrophils Absolute Auto 2.2 x10*3/uL (2.0-8.3); Neutrophils Percent Auto 37.8 % (45-73); Red Blood Count 3.98 X10*6/uL (4.60-5.80); White Blood Count 5.8 X10*3/uL (4.8-10.8)
[2023-11-03 15:07] LABS: Platelet Count 69 X10*3/uL (160-400)
[2023-11-03 15:34] LABS: Alanine Aminotransferase 37 U/L (0-40); Albumin Level 4.2 g/dL (3.5-5.0); Alkaline Phosphatase 70 U/L (39-117); Anion Gap 9 (12-20); Aspartate Amino Transferase 32 U/L (5-37); Bilirubin Direct 0.2 mg/dL (0.0-0.5); Bilirubin Total 0.6 mg/dL (0.0-1.0); Blood Urea Nitrogen 17 mg/dL (9-16); Calcium 9.3 mg/dL (8.4-10.2); Carbon Dioxide 32 mmol/L (22-29); Chloride 101 mmol/L (96-108); Estimated Glomerular Filt Rate > 60; Glucose Random 135 mg/dL (60-115); Potassium 3.7 mmol/L (3.3-5.1); Sodium 138 mmol/L (135-145); Total Protein 7.6 g/dL (6.5-8.0)
== END 2023-11-03 13:44 | disposition home or self-care (01) ==
LOC: HO.CHCLDS 13:43
PROVIDERS: Visit Provider Internal Medicine
DX: R19.00 Intra-abdominal and pelvic swelling, mass and lump, unspecified site (principal)
CPT/HCPCS: 36415; 80048; 80076; 85025

== ENCOUNTER 2023-11-04 11:39 | Outpatient (REF) | payer MEDICAID, SELFPAY ==
--- NOTE | ~2023-11-04 | US_ITS ---
EXAMINATION: US ABDOMEN COMPLETE CLINICAL INFORMATION: Abdominal and leg swelling, weight gain. History of cirrhosis. COMPARISON: Abdominal ultrasound 02/11/2023 TECHNIQUE: Real-time imaging of the abdominal viscera. FINDINGS: PANCREAS: Normal head and body, tail is obscured by bowel gas. ABDOMINAL AORTA: The proximal, mid, and distal segments are normal in caliber. INFERIOR VENA CAVA: Visualized portions are normal. LIVER: The liver is enlarged. The left lobe measures 14.6 cm and the right lobe measures 20.8 cm in in cephalocaudad dimension. The echotexture is coarse. No focal hepatic lesion. There is no intrahepatic biliary duct dilatation seen. The main portal vein is hepatopedal. GALLBLADDER: Surgically absent. COMMON BILE DUCT: There is no of the proximal common duct measuring 1.2 cm, however, the common duct at the axel hepatis measures 0.6 cm. The mid and distal common duct is not well seen. RIGHT KIDNEY: Normal. No hydronephrosis. No renal calculi or focal parenchymal lesions. The kidney measures 12.2 cm in maximum dimension. LEFT KIDNEY: Normal. No hydronephrosis. No renal calculi or focal parenchymal lesions. The kidney measures 12.6 cm in maximum dimension. SPLEEN: Enlarged. The spleen measures 19.6 cm in maximum dimension. Splenic varices are seen. 1.6 x 1.7 x 1.7 cm splenule is seen adjacent to the spleen FREE FLUID: None. US/US abdomen complete IMPRESSION: 1. Hepatosplenomegaly. 2. Coarse echotexture of the liver. 3. Prior cholecystectomy. 4. Dilatation of the proximal common duct. The mid and distal common duct are not well seen. 5. Splenic varices.
== END 2023-11-04 11:40 | disposition home or self-care (01) ==
LOC: HO.HMGCX 11:39
PROVIDERS: PCP Family Medicine; Visit Provider Internal Medicine
DX: R19.00 Intra-abdominal and pelvic swelling, mass and lump, unspecified site (principal)
CPT/HCPCS: 76700

== ENCOUNTER 2023-11-06 14:56 | Outpatient (REF) | payer MEDICAID, SELFPAY ==
--- NOTE | ~2023-11-06 | US_ITS ---
EXAMINATION: US VENOUS ULTRASOUND WITH DOPPLER LOWER EXTREMITY, BILATERAL CLINICAL INFORMATION: Bilateral leg swelling. Localized edema. COMPARISON: None available. TECHNIQUE: Ultrasound of the deep veins is performed from the hip to the calf with compression sonography and color and pulse Doppler assessment. Spectral analysis with color-flow imaging is performed. FINDINGS: RIGHT: There is normal venous compression and respiratory variation and augmented flow. The visualized common femoral vein, superficial femoral vein, profunda femoral vein, popliteal vein, and the trifurcation region shows no evidence of deep venous thrombosis. There is thrombus visualized in the right greater saphenous vein distal thigh to mid calf suggestive of superficial thrombophlebitis. There is a small lymph node visualized in the right proximal thigh measuring 2.3 x 0.9 x 2.0 cm. There is no significant popliteal fossa cyst. LEFT: There is normal venous compression and respiratory variation and augmented flow. The visualized common femoral vein, superficial femoral vein, profunda femoral vein, popliteal vein, and the trifurcation region shows no evidence of deep venous thrombosis. There is a thrombus visualized in greater saphenous vein extending to from proximal thigh to mid distal calf suggestive of superficial thrombophlebitis. There is no significant popliteal fossa cyst. If the patient's symptoms persist, followup ultrasound in 5 days 7 days might be of value to exclude proximal propagation from a non-visualized calf vein. US/US venous duplex LE BI IMPRESSION: No DVT demonstrated in the bilateral lower extremity. There is bilateral superficial thrombophlebitis in the greater saphenous vein 2 midcalf right leg and distal calf left leg. There is benign lymph node in the right proximal thigh. There is no Ellis's cyst.
== END 2023-11-06 14:57 | disposition home or self-care (01) ==
LOC: HO.US 14:56
PROVIDERS: PCP Internal Medicine; Visit Provider Internal Medicine
DX: R60.0 Localized edema (principal)
CPT/HCPCS: 93970

== ENCOUNTER 2023-11-07 11:24 | Emergency (ER) | payer MEDICAID, SELFPAY ==
[2023-11-07 11:30] VITALS: BP 137/69; PULSE 78; RESP 18; TEMP 35.6; O2SAT 94; BMI 38.3
--- NOTE | 2023-11-07 11:31 | ED.GENADULT ---
HPI - General Adult General Chief complaint: General Medical Stated complaint: possible blood clots in legs Time Seen by Provider: 11/07/23 15:19 Source: patient and family Mode of arrival: ambulatory Limitations: language barrier (Indonesian-speaking database support utilized) History of Present Illness HPI narrative: Patient is a 58-year-old male who presents emergency department reporting he has blood clots in both of his legs. Had ultrasound done outpatient which reportedly showed clots in both legs, this was performed due to swelling of the bilateral feet for 2 months. Denies past history of DVT/PE, coagulation disorders, use of blood thinners. Denies chest pain, shortness of breath, difficulty breathing. Related Data Home Medications Medication Instructions Recorded Confirmed buprenorphine 8 mg-naloxone 2 mg 10 mg sublingual BID 01/29/22 09/09/23 sublingual film (Suboxone) lisinopril 40 mg tablet 40 mg PO DAILY 01/29/22 09/09/23 trazodone 150 mg tablet 150 mg PO BEDTIME 01/29/22 09/09/23 doxepin 10 mg capsule 10 mg PO BEDTIME 04/14/23 09/09/23 chlorthalidone 25 mg tablet 25 mg PO QAM 10/01/23 ferrous gluconate 324 mg (37.5 mg 324 mg PO DAILY 10/01/23 iron) tablet lactulose 10 gram/15 mL oral 15 ml PO BEDTIME 10/01/23 solution metoprolol succinate 50 mg 50 mg PO QAM 10/01/23 tablet,extended release 24 hr fklikdsz-xz-zjugt 300 mcg-K 60 1 tab PO DAILY 10/01/23 mcg-lycop 600 mcg-lutein 300 mcg tablet (Centrum Silver Ultra Men's) Previous Rx's Medication Instructions Recorded aspirin 81 mg tablet,delayed 81 mg PO DAILY #90 tabs 08/20/22 release ticagrelor 90 mg tablet (Brilinta) 90 mg PO BID 90 days #180 tabs 05/29/23 docusate sodium 100 mg capsule 100 mg PO BID #60 caps 10/01/23 omeprazole 20 mg capsule,delayed 20 mg PO DAILY #90 caps 10/01/23 release sennosides 8.6 mg tablet (Natural 17.2 mg (2 x 8.6 mg) PO BEDTIME 10/01/23 Senna Laxative) constipation #180 tabs rosuvastatin 20 mg tablet 20 mg PO DAILY #30 tabs 11/05/23 apixaban 5 mg (74 tabs) tablets in 5 mg PO BID #74 ea 11/07/23 a dose pack (Eliquis DVT-PE Treat 30D Start) clopidogrel 75 mg tablet (Plavix) 75 mg PO DAILY #30 tabs 11/07/23 Allergies Allergy/AdvReac Type Severity Reaction Status Date / Time No Known Allergies Allergy Verified 11/07/23 11:33 [No Known Allergies*] Review of Systems Review of Systems: Yes all other systems are reviewed and are negative [facility] Past Medical History Attestation statement: The following information was validated with the patient. Source: old records reviewed Medical History Nicotine dependence, cigarettes, uncomplicated Colon polyp, hyperplastic (~2016) Insomnia Liver cirrhosis History of heroin use Chronic hepatitis C Hypertension, essential, benign Surgical History History of heart artery stent (~2021) History of cardiac cath (~2021) History of cholecystectomy (~2020) History of esophagogastroduodenoscopy (EGD) History of colonoscopy Family History Family History Brother Lung cancer Social History Social History Household Members: Family Housing: House Are you a primary careers adviser to a significant other at home: No Do you presently have visiting nurse or other home services: No Patient Tobacco Use Status: Former Tobacco user Tobacco use type: Cigarette Cigarette Packs Per Day: 1 Years Smoked: onset 11, 1ppd x 45yrs, 45pyh - QUIT 02/26/2022 Advance Directives: No Advance Directives Information Provided: No service: No Current occupational status: employed Physical Exam ED Vital Signs: Vital Signs - 24 hr 11/07/23 11:30 11/07/23 15:20 Temperature 96.0 F L 96.7 F L Pulse Rate 78 80 Respiratory Rate 18 20 Blood Pressure 137/69 137/74 Pulse Oximetry 94 96 Oxygen Delivery Method Room Air Room Air BMI result Body Mass Index 38.3 Appearance: Alert.?Oriented to person, place and time. No acute distress.?Normal affect. Eyes: Pupils equal, round and reactive to light.? ENT: Pharynx normal.?? Neck: Normal inspection.? Neck supple.?? CVS: Heart sounds normal. Normal heart rate and rhythm.? Pulses normal.?? Respiratory: No respiratory distress.? Lung sounds clear to auscultation bilaterally?? Abdomen: Soft and non-tender. Normoactive bowel sounds. No pulsatile mass.?? Skin: Skin warm and dry.? Normal skin color.? Normal skin turgor.?? Extremities: 2+ bilateral lower extremity edema.? No calf ttp? Neuro: Moves all extremities spontaneously. Sensation intact bilaterally. CN II-XII intact. No focal neuro deficits. Ambulates with normal steady gait. Course Reevaluation(s) Reevaluation #1: Receive a telephone call from patient that the initial prescription was not able to be filled that the original pharmacy. A new prescription for Eliquis starter pack was sent to [facility] on [facility] in [place] per the patient's request. Time: 20:11 Medical Decision Making Medical Decision Making MDM Narrative: Patient is a 58-year-old male past medical history cirrhosis, hep C, hypertension, cardiac stenting on Brilinta and aspirin who presents emergency department for evaluation of bilateral lower extremity edema over the past 2 months. Had outpatient ultrasound done which reveals extensive bilateral superficial thrombophlebitis of the greater saphenous vein. Has chronic thrombocytopenia, platelet count today 61,000, concern for starting for which will start prophylactic dosing of Xarelto 10 mg daily for this, therefore I consulted Hematology. I spoke with Dr. Foster, who did recommend that he could be on full-dose anticoagulant as long as his platelet count is greater than 50,000, however upon further review of his record I do see that he is currently taking Brilinta as well as aspirin secondary to cardiac stenting in 2021. Per Cardiology documentation who he saw on August 2023 they recommend continued dual antiplatelet therapy uninterrupted until April of 2024, therefore I consulted with Cardiology Dr. Cartwright who recommends discontinuation of aspirin and Brilinta, and beginning Plavix 75 mg daily in addition to anticoagulants as per hematology recommendation. Dr. Foster recommends full-dose anticoagulant for 30 days and may stop clot resolves, outpatient follow-up with Hematology. He is without chest pain shortness of breath, Recommended outpatient follow-up with primary care provider, the need for close monitoring of blood counts, outpatient follow-up with Cardiology who will contact him, andworrisome signs and symptoms that would warrant re-evaluation emergency department. Discussed strict return precautions/bleeding precautions with the use of anticoagulants. IMPRESSION: No DVT demonstrated in the bilateral lower extremity. There is bilateral superficial thrombophlebitis in the greater saphenous vein 2 midcalf right leg and distal calf left leg. There is benign lymph node in the right proximal thigh. There is no Ellsi's cyst. Plan: labs prior to initiation of anticoagulants Differential Diagnosis Differential Diagnoses: The differential diagnosis associated with the presentation includes (Superficial thrombophlebitis, DVT, not consistent with PE) Admission/Observation Consideration of admission/observation: Escalation of care including admission/observation considered (Stable for discharge, initiated anticoagulants) Consult Healthcare Provider Management of the patient was discussed with: Wealth Management Consultant (See narrative above) Lab Data MDM Lab Attestation statement: I reviewed the patient's lab results. (See narrative above) 11/07/23 11:47 11/07/23 11:47 Labs: Lab Results 11/07/23 Range/Units 11:47 WBC 4.8 (4.8-10.8) X10*3/uL RBC 3.86 L (4.60-5.80) X10*6/uL Hgb 11.4 L (14.0-18.0) g/dl Hct 32.5 L (42.0-52.0) % MCV 84.2 (80.0-98.0) fL MCH 29.5 (27.0-33.0) pg MCHC 35.1 (31.0-36.0) g/dl RDW 13.6 (11.0-16.0) % Plt Count 61 L (160-400) X10*3/uL MPV 11.0 (9.4-12.4) fL Immature Gran % (Auto) 0.4 (0.0-0.4) % Neut % (Auto) 42.0 L (45-73) % Lymph % (Auto) 46.2 H (20-40) % [place] % (Auto) 9.3 (2-11) % Eos % (Auto) 1.7 (0-4) % Baso % (Auto) 0.4 (0-2) % Lymph # (Auto) 2.2 (1.2-4.9) X10*3/uL [place] # (Auto) 0.5 (0.1-1.2) X10*3/uL Eos # (Auto) 0.1 (0.0-0.4) X10*3/uL Baso # (Auto) 0.0 (0.0-0.2) X10*3/uL Abs Immat Gran (auto) 0.02 (0.00-0.03) X10*3/uL Absolute Neuts (auto) 2.0 (2.0-8.3) x10*3/uL Absolute Nucleated RBC 0.000 (0.0-0.012) X10*3/uL Nucleated RBC % (auto) 0.0 (0.0-0.2) /100WBC PT 12.8 (11.1-13.3) SEC INR 1.1 (0.9-1.1) APTT 31.0 (26.0-36.8) SEC Sodium 136 (135-145) mmol/L Potassium 4.3 (3.3-5.1) mmol/L Chloride 97 (96-108) mmol/L Carbon Dioxide 31 H (22-29) mmol/L Anion Gap 12 (12-20) BUN 23 H (9-16) mg/dL Creatinine 0.99 (0.5-1.4) mg/dL Estim Creat Clear Calc 101.7 Estimated GFR > 60 Random Glucose 135 H (60-115) mg/dL Calcium 10.0 D (8.4-10.2) mg/dL Total Bilirubin 0.6 (0.0-1.0) mg/dL AST 26 (5-37) U/L ALT 26 (0-40) U/L Alkaline Phosphatase 72 (39-117) U/L Total Protein 7.7 (6.5-8.0) g/dL Albumin 4.3 (3.5-5.0) g/dL Independent Historian Clinical information obtained from an independent historian. History obtained from or confirmed by: Spouse External Record Review External record reviewed: Outpatient record and Prior outpatient radiology Prescription Management I considered prescription management with: Other (Anticoagulants) Critical Care Time Critical Care Time Critical Care Time: Yes Total Critical Care Time: 35 Attestation: I personally attest to this critical care time spent taking care of the patient exclusive of all other billable procedures was approximately 35 minutes including initial evaluation of patient, ordering tests, ultrasound interpretation, medical consultation, documentation, re-evaluation. Discharge Plan Discharge Clinical Impression: Superficial thrombophlebitis of both legs Patient Disposition: Home, Self-Care Instructions: Superficial Thrombophlebitis (ED), Blood Thinners (ED) Additional Instructions: 1. STOP TAKING ASPIRIN AND BRILINTA 2. A NEW PRESCRIPTION FOR PLAVIX 75 MG WAS SENT TO YOUR PHARMACY, TAKE THIS ONCE DAILY. 3. A NEW PRESCRIPTION FOR A BLOOD THINNING MEDICATION WAS SENT YOUR PHARMACY, Eliquis. Take as instructed on prescription 10 mg twice daily for 7 days, followed by 5 mg twice daily for at least 30 days. You will need to follow-up with a laboratory assistant, a blood specialist, their contact information has been provided to you on your discharge, Dr. Foster. You also need to follow-up with Cardiology, due to the changes in your medications, their office should be contacting you for follow-up. You will need to contact your primary care provider to arrange for follow-up as well, you will require close monitoring of your blood counts on these medications. You will need to pick this up from the pharmacy and begin taking it today As discussed, if you have any fall or head injury you should be evaluated in the emergency department. You may notice increase bruising with any injury. If you develop any bleeding and this needs to be evaluated Return to emergency department with any new or worsening symptoms or concerns, including but not limited to, worsening pain, swelling, chest pain, shortness of breath dizziness, lightheadedness. Contact your primary care doctor to arrange for a follow-up visit. 1. DEJE DE YOSVANY ASPIRINA Y BRILINTA 2. SE ENVI? SILVANO NUEVA RECETA DE PLAVIX 75 MG A HAMMOND FARMACIA, T?ALYSON SILVANO VEZ AL D?A. 3. SE ENVI? A HAMMOND FARMACIA SILVANO NUEVA RECETA DE UN MEDICAMENTO ANTIAGUIADOR, Eliquis. [place] seg?n las instrucciones de la receta, 10 mg dos veces al d?a toya 7 d?as, seguido de 5 mg dos veces al d?a toya al menos 30 d?as. Necesitar? un seguimiento con un hemat?logo, un especialista en juan r, hammond informaci?n de contacto le fue proporcionada cuando recibi? el kary, Dr. Foster. Tambi?n necesita hacer seguimiento con Cardiolog?a, debido a los cambios en gwendolyn medicamentos, hammond consultorio deber?a estar comunic?ndose con usted para seguimiento. Tambi?n deber? comunicarse con hammond proveedor de atenci?n primaria para programar el seguimiento; necesitar? un control estricto de gwendolyn recuentos sangu?neos con estos medicamentos. Deber? recogerlo en la farmacia y comenzar a tomarlo hoy. [place] se mencion?, si sufre alguna ca?da o lesi?n en la simba, debe ser evaluado en el departamento de emergencias. Es posible que notes un aumento de los hematomas con cualquier lesi?n. Si desarrolla alg?n sangrado y esto necesita ser evaluado Regrese al departamento de emergencias si presenta cualquier s?ntoma o inquietud nuevo o que empeore, incluidos, entre otros, empeoramiento del dolor, hinchaz?n, dolor en el pecho, dificultad para respirar, mareos y aturdimiento. Comun?quese con hammond m?dico de atenci?n primaria para programar silvano visita de seguimiento. Prescriptions: New clopidogrel [Plavix] 75 mg tablet 75 mg PO DAILY Qty: 30 0RF Eliquis DVT-PE Treat 30D Start 5 mg (74 tabs) tablets,dose pack 5 mg PO BID Qty: 74 0RF No Action aspirin 81 mg tablet,delayed release (DR/EC) 81 mg PO DAILY Qty: 90 0RF rosuvastatin 20 mg tablet 20 mg PO DAILY Qty: 30 10RF buprenorphine-naloxone [Suboxone] 8-2 mg film 10 mg sublingual BID trazodone 150 mg tablet 150 mg PO BEDTIME lisinopril 40 mg tablet 40 mg PO DAILY doxepin 10 mg capsule 10 mg PO BEDTIME Brilinta 90 mg tablet 90 mg PO BID 90 Days Qty: 180 3RF Centrum Silver Ultra Men's [id number] mcg tablet 1 tab PO DAILY ferrous gluconate 324 mg (37.5 mg iron) tablet 324 mg PO DAILY chlorthalidone 25 mg tablet 25 mg PO QAM lactulose 10 gram/15 mL solution 15 ml PO BEDTIME metoprolol succinate 50 mg tablet extended release 24 hr 50 mg PO QAM docusate sodium 100 mg capsule 100 mg PO BID Qty: 60 3RF sennosides [Natural Senna Laxative] 8.6 mg tablet 17.2 mg PO BEDTIME Qty: 180 2RF omeprazole 20 mg capsule,delayed release(DR/EC) 20 mg PO DAILY Qty: 90 3RF Referrals: Ava Foster MD [Physician] - Mike Cartwright MD [Physician] - Catherine Kaminski MD [Primary Care Provider] - Stand Alone Forms: Work/School Release Interventions: ED Discharge Assessment Last Done: 11/07/23 17:11 Discharge Date/Time: 11/07/23 17:11 Print Language: Indonesian
[2023-11-07 11:50] LABS: MANUAL DIFF FLAG NO
[2023-11-07 11:54] LABS: Basophils Percent Auto 0.4 % (0-2); Eosinophils Absolute Auto 0.1 X10*3/uL (0.0-0.4); Eosinophils Percent Auto 1.7 % (0-4); Hematocrit 32.5 % (42.0-52.0); Hemoglobin 11.4 g/dl (14.0-18.0); Imm Gran Abs Auto 0.02 X10*3/uL (0.00-0.03); Imm Gran Pct Auto 0.4 % (0.0-0.4); Lymphocytes Absolute Auto 2.2 X10*3/uL (1.2-4.9); Lymphocytes Percent Auto 46.2 % (20-40); Mean Corpuscular HGB Conc 35.1 g/dl (31.0-36.0); Mean Corpuscular Hemoglobin 29.5 pg (27.0-33.0); Mean Corpuscular Volume 84.2 fL (80.0-98.0); Monocytes Absolute Auto 0.5 X10*3/uL (0.1-1.2); Monocytes Percent Auto 9.3 % (2-11); Platelet Count 61 X10*3/uL (160-400); Red Blood Count 3.86 X10*6/uL (4.60-5.80); Red Cell Distribution Width 13.6 % (11.0-16.0); White Blood Count 4.8 X10*3/uL (4.8-10.8)
[2023-11-07 11:57] LABS: INTERNATIONAL NORM RATIO 1.1 (0.9-1.1); Prothrombin Time 12.8 SEC (11.1-13.3)
[2023-11-07 12:09] LABS: Alanine Aminotransferase 26 U/L (0-40); Albumin Level 4.3 g/dL (3.5-5.0); Alkaline Phosphatase 72 U/L (39-117); Anion Gap 12 (12-20); Aspartate Amino Transferase 26 U/L (5-37); Bilirubin Total 0.6 mg/dL (0.0-1.0); Blood Urea Nitrogen 23 mg/dL (9-16); Carbon Dioxide 31 mmol/L (22-29); Chloride 97 mmol/L (96-108); Creatinine Clr Calc Pharmacy 101.7; Estimated Glomerular Filt Rate > 60; Glucose Random 135 mg/dL (60-115); Potassium 4.3 mmol/L (3.3-5.1); Sodium 136 mmol/L (135-145); Total Protein 7.7 g/dL (6.5-8.0)
[2023-11-07 15:20] VITALS: BP 137/74; PULSE 80; RESP 20; TEMP 35.9; O2SAT 96
== END 2023-11-07 17:11 | disposition home or self-care (01) ==
PROVIDERS: Nurse Practitioner Family; Emergency Provider Emergency Medicine; PCP Family Medicine
DX: I80.03 Phlebitis and thrombophlebitis of superficial vessels of lower extremities, bilateral (principal); R60.0 Localized edema; F17.210 Nicotine dependence, cigarettes, uncomplicated
CPT/HCPCS: 36415; 80053; 85025; 85610; 85730; 99282; 99283

== ENCOUNTER 2023-11-25 14:49 | Outpatient (AMB) | payer MEDICAID, SELFPAY ==
--- NOTE | 2023-11-25 15:02 | A.OFFVIS_ITS ---
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 Present Allergies No Known Allergies [No Known Allergies*] Allergy (Verified 11/25/23 15:07) Medication List - Last Reconciled 11/25/23 by SARAH Ponce apixaban (Eliquis DVT-PE Treat 30D Start) 5 mg PO BID aspirin 81 mg PO DAILY buprenorphine-naloxone 8-2 mg (Suboxone) 10 mg sublingual BID chlorthalidone 25 mg PO QAM docusate sodium 100 mg PO BID doxepin 10 mg PO BEDTIME ferrous gluconate 324 mg PO DAILY lactulose 15 mL PO BEDTIME lisinopril 40 mg PO DAILY metoprolol succinate ER 50 mg PO QAM [id number]-hvyexyy-[id number] [id number] mcg (Centrum Silver Ultra Men's) 1 tab PO DAILY omeprazole 20 mg PO DAILY rosuvastatin 20 mg PO DAILY sennosides (Natural Senna Laxative) 17.2 mg (2 x 8.6 mg) PO BEDTIME trazodone 200 mg PO BEDTIME HPI f/up [facility] ED med chgs HPI Details Suhail is a 58-year-old male with past medical history hypertension, hyperlipidemia, CAD, OM to stent who reported chest discomfort last summer and had abnormal nuclear stress test. He then underwent a cardiac catheterization and showed CT of the left circumflex stent and right PAV 99% stenosis, KERMIT placed in October he reported to the emergency room with bilateral leg swelling. Ultrasound showed bilateral GSV thrombophlebitis. His aspirin and Brilinta were stopped and He was put on Eliquis and Plavix. Today he reports that he continues to have discomfort in each upper leg and mild swelling in his lower legs.. He says the left more bothersome than the right. 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 He has no concerning shortness of breath. No chest discomfort at rest or with activity. No heart palpitations, lightheadedness, presyncope, syncope, PND, orthopnea or edema. Taking his meds as directed. No bleeding issues reported. is present. [facility] Medical History Nicotine dependence, cigarettes, uncomplicated Colon polyp, hyperplastic (~2016) Insomnia Liver cirrhosis History of heroin use Chronic hepatitis C Hypertension, essential, benign Surgical History History of heart artery stent (~2021) History of cardiac cath (~2021) History of cholecystectomy (~2020) History of esophagogastroduodenoscopy (EGD) History of colonoscopy Family History Brother Lung cancer Social History Household Members: Family Housing: House Are you a primary direct support professional caregiver to a significant other at home: No Do you presently have visiting nurse or other home services: No Patient Tobacco Use Status: Former Tobacco user Tobacco use type: Cigarette Cigarette Packs Per Day: 1 Years Smoked: onset 11, 1ppd x 45yrs, 45pyh - QUIT 02/26/2022 service: No Current occupational status: employed Review of Systems Const All systems reviewed & are unremarkable except as noted in HPI and below ENT Denies dizziness Card Denies chest pain, Denies chest pain at rest, Denies chest pain with activity, Denies rapid heart rate, Reports pedal edema, Denies edema, Reports leg edema, Denies lightheadedness, Denies palpitations, Reports dyspnea, Denies dyspnea on exertion and Denies orthopnea Resp Denies cough, Reports dyspnea and Denies dyspnea on exertion GI Denies hematochezia and Denies change in stool character Musc Details: bilateral leg discomfort - whole leg Denies abnormal gait, Denies limited range of motion, Denies muscle cramps, Denies muscle weakness, Denies numbness, Denies radiating pain into limb, Denies stiffness and Denies tingling Neuro Denies abnormal gait, Denies dizziness, Denies numbness and Denies tingling Endo Denies palpitations Physical Exam Vital Signs: Last Vital Signs Pulse 62 11/25/23 15:05 BP 130/50 L 11/25/23 15:05 BMI result Body Mass Index 39.3 Const General: cooperative, healthy appearing, comfortable and no acute distress Orientation/consciousness: patient oriented x3 Neck Neck: Yes normal visual inspection and Yes no JVD Resp Effort & Inspection: normal respiratory effort Auscultation: clear to auscultation bilaterally, no rales, no rhonchi and no wheezes Cardio Jugular venous distension: no JVD Rate: regular rate Rhythm: regular rhythm Heart sounds: S1 normal heart sound present, S2 normal heart sound present, no gallops, no murmurs and no rubs Neuro General: patient oriented x3 Extrem Other: trace bilateral lower leg swelling, L > R Psych Appearance: grossly normal Mental Status: mental status grossly normal Speech and movement: Normal speech and movement present Office Procedures EKG Details: Today, read by me, normal sinus rhythm, nonspecific ST abnormality, no significant change from prior EKG, rate 62, QTC 424 milliseconds [id number], Complete Assessment & Plan Assessment & Plan (1) Coronary artery disease: Comment: (KERMIT to OM2 - 08/2022), [facility] April 2023 Code(s): I25.10 - Atherosclerotic heart disease of [place] coronary artery without angina pectoris Plan: Known history of CAD with KERMIT to OM2 08/2022. On follow-up visit he reported chest discomfort similar to prior angina. He underwent a nuclear stress test on 05/16/2023 showing severe RCA ischemia, moderate left circumflex ischemia. 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 Balloon angioplasty and stent placed. He has not had any recurrent anginal symptoms since that time. Recent ER evaluation for bilateral leg pain with findings bilateral superficial thrombophlebitis in the GSV to the mid calf on the right leg and distal calf on the left leg. He was taken off aspirin and Brilinta and put on Eliquis and Plavix. No bleeding issues reported. He should continue Plavix uninterrupted for at least 1 year from stent placement, 05/22/2024. At which time Plavix could be discontinued and ch anged over to aspirin. Continue dual antianginals with isosorbide and metoprolol XL. Continue rosuvastatin with LDL goal less than 70. Continue hydrochlorothiazide, lisinopril for blood pressure control. Blood pressure today 130/50. Signs and symptoms of angina discussed. Instructed to call us for any recurrent symptoms. Emergency care if needed for symptoms. Cardiology follow-up in 3 months, sooner if needed (2) S/P cardiac catheterization: Comment: 05/22/2023, left main normal, lad distal 50% stenosis, left circumflex ET 0 in stent AV groove, ovif-uv-[id number] collaterals, right PA V, proximal 99% stenosis, balloon angioplasty and stent placed Code(s): Z98.890 - Other specified postprocedural states Plan: As above (3) Exertional chest pain: Code(s): R07.9 - Chest pain, unspecified Plan: Resolved (4) Hypertension, essential, benign: Code(s): I10 - Essential (primary) hypertension Plan: Well controlled (5) Hyperlipidemia: Code(s): E78.5 - Hyperlipidemia, unspecified Plan: [place] LDL goal less than 70 in patient with CAD. No recent lipid profile in our system. Follows with outside PCP. Will forward this note to his provider. Recommend lipids be checked. (6) Superficial thrombophlebitis of both legs: Code(s): I80.03 - Phlebitis and thrombophlebitis of superficial vessels of lower extremities, bilateral Plan: Noted on ultrasound 11/06/2023. He has been on Eliquis for anticoagulation. This is being followed by his PCP. Plan Time spent on chart review, documentation, interview and assessment Coding Level of Care Code Est Pt Level 4 (53639) Diagnoses Coronary artery disease I25.10 S/P cardiac catheterization Z98.890 Exertional chest pain R07.9 Hypertension, essential, benign I10 Hyperlipidemia E78.5 Superficial thrombophlebitis of both legs I80.03 CPT Codes EKG - CPT: 62926-[id number], Complete ([id number]) Time Spent (min) 35
[2023-11-25 15:05] VITALS: BP 130/50; PULSE 62; BMI 39.3
== END 2023-11-25 15:53 | disposition home or self-care (01) ==
PROVIDERS: PCP Family Medicine; Visit Provider Nurse Practitioner Family
DX: I25.10 Atherosclerotic heart disease of native coronary artery without angina pectoris (principal); Z98.890 Other specified postprocedural states; R07.9 Chest pain, unspecified; I10 Essential (primary) hypertension; E78.5 Hyperlipidemia, unspecified; I80.03 Phlebitis and thrombophlebitis of superficial vessels of lower extremities, bilateral
CPT/HCPCS: 93010; 99214

== ENCOUNTER → 2023-11-25 14:49 | Outpatient (BNVA) | payer MEDICAID, SELFPAY | PROVIDERS: PCP Family Medicine; Visit Provider Nurse Practitioner Family | DX: I25.10 Atherosclerotic heart disease of native coronary artery without angina pectoris (principal); I10 Essential (primary) hypertension; R07.9 Chest pain, unspecified; E78.5 Hyperlipidemia, unspecified; I80.03 Phlebitis and thrombophlebitis of superficial vessels of lower extremities, bilateral; Z98.890 Other specified postprocedural states | CPT/HCPCS: 93005; 99212 ==

== ENCOUNTER → 2023-12-29 14:59 | Outpatient (REF) | payer MEDICAID, SELFPAY | LOC: HO.SL 14:59 | PROVIDERS: PCP Family Medicine; Visit Provider Family Medicine | DX: G47.33 Obstructive sleep apnea (adult) (pediatric) (principal) | CPT/HCPCS: 95806 ==

== ENCOUNTER → 2023-12-29 19:00 | Outpatient (BNV) | payer MEDICAID, SELFPAY | PROVIDERS: PCP Family Medicine; Visit Provider Internal Medicine | DX: G47.33 Obstructive sleep apnea (adult) (pediatric) (principal) | CPT/HCPCS: 95806 ==

== ENCOUNTER 2024-01-09 15:33 | Outpatient (AMB) | payer MEDICAID, SELFPAY ==
[2024-01-09 15:38] VITALS: BP 124/68; PULSE 79; BMI 40.5
--- NOTE | 2024-01-09 15:38 | MHC.OFFVIS ---
Vital Signs 01/09/24 15:38 Height 5 ft 9 in Weight 274 lb BMI 40.5 BP 124/68 Blood Pressure Location Rt brachial Position Sitting Pulse 79 Intake Visit Reasons: 4 month f/u rediscuss colo and cardiac clearance Intake Note: Suhail returns to in office follow up to discuss colonoscopy and cardiac clearance. CC: He c/o epigastric pain and sometimes constipation unless he takes his 's Linzess. 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 Continue lactulose at bedtime and continue senna and Colace. Patient will return in December so we can discuss going for colonoscopy. Patient was encouraged to take his Brilinta as prescribed. Patient is agreeable to plan of care and verbalizes understanding of instructions. He was given the opportunity to ask questions and all questions answered. ? Thank you for allowing me to participate in his care Medications Changed Changed From sennosides (Natural Senna Laxative) 8.6 mg PO BEDTIME 90 tabs 3RF constipation K59.00 Changed To sennosides (Natural Senna Laxative) 17.2 mg (2 x 8.6 mg) PO BEDTIME 180 tabs 2RF constipation K59.00 Refilled docusate sodium 100 mg PO BID 60 caps 3RF K59.00 omeprazole 20 mg PO DAILY 90 caps 3RF K21.9 Discontinued polyethylene glycol 3350 (Miralax) Discontinued Reason: Doctor's Order 17 grams PO DAILY 510 grams 2RF TODAY'S VISIT Patient is here today for follow-up and to discuss possibly going for colonoscopy. Patient continues to be constipated. Takes Senokot 2 tablets every evening and continues to be very bloated and unable to move his bowels. Patient reports that he feels like he is , ultrasound of the abdomen was done suspecting possible ascites, increased echotexture of the liver found, hepatitis splenomegaly found as well. No ascites. Patient was sent for venous ultrasound and was found to have superficialsuperficial thrombophlebitis in the greater saphenous vein bilaterally. Patient reports to be very constipated. Patient reports that he has tried using his 's Linzess and states that it was working for him. He states that he would like to get a script for that. Patient denies any melena, hematochezia, unintentional weight loss or ribbon like stools. Patient reports that he is not taking Plavix and was told by PCP to stop Plavix long time ago. Recently just put on Eliquis for superficial thrombophlebitis of bilateral lower extremities as mentioned above. Patient denies any shortness of breath. Denies any dyspepsia, dysphagia or odynophagia. Patient's is with him and she is aware of all the medications that he is taking. Patient's is sure that he is not taking Plavix. States that she was told by PCP to stop it immediately. Not sure exactly how long he was without it, however patient's states that he never took it. Spoke to cardiovascular nurse practitioner Socorro Isaacs NP to report this finding. [facility], LAT[facility] Medical History Nicotine dependence, cigarettes, uncomplicated Colon polyp, hyperplastic (~2016) Insomnia Liver cirrhosis History of heroin use Chronic hepatitis C Hypertension, essential, benign Surgical History History of heart artery stent (~2021) History of cardiac cath (~2021) History of cholecystectomy (~2020) History of esophagogastroduodenoscopy (EGD) History of colonoscopy Family History Brother Lung cancer Social History Household Members: Family Housing: House Are you a primary care center manager to a significant other at home: No Do you presently have visiting nurse or other home services: No Patient Tobacco Use Status: Former Tobacco user Tobacco use type: Cigarette Cigarette Packs Per Day: 1 Years Smoked: onset 11, 1ppd x 45yrs, 45pyh - QUIT 02/26/2022 service: No Current occupational status: employed Review of Systems Const Denies weight gain and Denies weight loss ENT Reports no additional complaints, Denies dysphagia and Denies odynophagia Card Reports no additional complaints Resp Reports no additional complaints GI Reports abdominal pain, Denies belching, Denies melena, Reports bloating, Reports constipation, Denies dysphagia, Denies excessive flatus, Denies dyspepsia, Reports heartburn (Occasional), Denies diarrhea, Denies loose stools, Denies nausea, Denies odynophagia and Denies vomiting Reports no additional complaints Musc Reports no additional complaints Neuro Reports no additional complaints Psych Reports no additional complaints Endo Reports no additional complaints Physical Exam Vital Signs: Last Vital Signs Pulse 79 01/09/24 15:38 BP 124/68 01/09/24 15:38 BMI result Body Mass Index 40.5 Const General: healthy appearing and no acute distress Nutritional Appearance: obese Orientation/consciousness: patient oriented x3 Resp Effort & Inspection: normal respiratory effort, able to speak in complete sentences, no tracheal deviation and symmetric chest movement Auscultation: clear to auscultation bilaterally Cardio Rate: regular rate GI Inspection: Yes normal to inspection, No distended and Yes obesity Palpation (GI): Soft to palpation, not firm, nontender and No hepatosplenomegaly present Auscultation: Hypoactive bowel sounds present General: Yes no CVA tenderness Back/Spine/Pelvis Back: no CVA tenderness Skin General skin exam: elasticity normal, turgor normal and dry skin Neuro General: patient oriented x3 Psych Appearance: grossly normal Mental Status: mental status grossly normal Results Reviewed Results Reviewed: Abdominal ultrasound FINDINGS: PANCREAS: Normal head and body, tail is obscured by bowel gas. ABDOMINAL AORTA: The proximal, mid, and distal segments are normal in caliber. INFERIOR VENA CAVA: Visualized portions are normal. LIVER: The liver is enlarged. The left lobe measures 14.6 cm and the right lobe measures 20.8 cm in in cephalocaudad dimension. The echotexture is coarse. No focal hepatic lesion. There is no intrahepatic biliary duct dilatation seen. The main portal vein is hepatopedal. GALLBLADDER: Surgically absent. COMMON BILE DUCT: There is no of the proximal common duct measuring 1.2 cm, however, the common duct at the axel hepatis measures 0.6 cm. The mid and distal common duct is not well seen. RIGHT KIDNEY: Normal. No hydronephrosis. No renal calculi or focal parenchymal lesions. The kidney measures 12.2 cm in maximum dimension. LEFT KIDNEY: Normal. No hydronephrosis. No renal calculi or focal parenchymal lesions. The kidney measures 12.6 cm in maximum dimension. SPLEEN: Enlarged. The spleen measures 19.6 cm in maximum dimension. Splenic varices are seen. 1.6 x 1.7 x 1.7 cm splenule is seen adjacent to the spleen FREE FLUID: None. US/US abdomen complete IMPRESSION: 1. Hepatosplenomegaly. 2. Coarse echotexture of the liver. 3. Prior cholecystectomy. 4. Dilatation of the proximal common duct. The mid and distal common duct are not well seen. 5. Splenic varices. Assessment & Plan Assessment & Plan (1) Chronic idiopathic constipation: Code(s): K59.04 - Chronic idiopathic constipation (2) GERD (gastroesophageal reflux disease): Code(s): K21.9 - Gastro-esophageal reflux disease without esophagitis Qualifiers: Esophagitis presence: esophagitis presence not specified Qualified Code(s): K21.9 - Gastro-esophageal reflux disease without esophagitis (3) Abdominal bloating: Code(s): R14.0 - Abdominal distension (gaseous) Plan Will check liver fibrosis panel and send patient for ultrasound of liver with elastography. Patient has normal liver enzymes and had normal liver enzymes for the last year. Start Linzess daily. Continue PPI treatment daily. Avoid dietary triggers and late night snacking. Patient was encouraged to stay upright for minimal 3 hours after meals. I will see patient in 2 months, sooner on as needed basis. Unsure why patient is not taking Plavix. Patient's states that he was told to stop it. Good medication review is needed for this patient. Patient should have not stopped the regimen with Plavix without discussing it with stonecutter apprentice hand. At this point patient will hold off going for colonoscopy as he is experiencing increased shortness of breath and occasional chest pain. Patient was informed to go to emergency room if he will experience increased shortness of breath and chest pain. Patient reports that he is feeling well today. Eliquis does not cover patient nor protects him from stent reocclusion. Please call patient before coming in for appointment to bring all of his medications to the appointment so we can re-evaluate. Both patient and his are agreeable to plan of care and verbalize understanding of instructions. They were given the opportunity to ask questions and all questions answered. Thank you for allowing me to participate in his care Orders: Orders Liver Fibrosis Pnl 01/09/24 K21.9 - Gastro-esophageal reflux disease without esophagitis, K59.04 - Chronic idiopathic constipation, K74.60 - Unspecified cirrhosis of liver US abdomen padgett w elastography 01/09/24 R74.01 - Elevation of levels of liver transaminase levels Medications: New linaclotide (Linzess) 290 mcg PO QAM 30 caps 4RF K59.00 - Constipation, unspecified linaclotide (Linzess) 290 mcg PO QAM 30 caps 4RF K59.00 - Constipation, unspecified Discontinued sennosides Discontinued Reason: Doctor's Order 17.2 mg (2 x 8.6 mg) PO BEDTIME 180 tabs 2RF constipation K59.00 - Constipation, unspecified docusate sodium Discontinued Reason: Doctor's Order 100 mg PO BID 60 caps 3RF K59.00 - Constipation, unspecified Coding Level of Care Code Est Pt Level 4 (63527) Diagnoses Chronic idiopathic constipation K59.04 Gastroesophageal reflux disease, unspecified whether esophagitis present K21.9 Esophagitis presence: esophagitis presence not specified Abdominal bloating R14.0 Time Spent (min) 40 Comment 25 minutes spent with patient and additional 15 minutes spent reviewing his records
== END 2024-01-09 16:20 | disposition home or self-care (01) ==
PROVIDERS: PCP Family Medicine; Visit Provider Nurse Practitioner Family
DX: K59.04 Chronic idiopathic constipation (principal); K21.9 Gastro-esophageal reflux disease without esophagitis; R14.0 Abdominal distension (gaseous)
CPT/HCPCS: 99214

== ENCOUNTER → 2024-01-09 15:33 | Outpatient (BNVA) | payer MEDICAID, SELFPAY | PROVIDERS: PCP Family Medicine; Visit Provider Nurse Practitioner Family | DX: K59.04 Chronic idiopathic constipation (principal); K21.9 Gastro-esophageal reflux disease without esophagitis; R14.0 Abdominal distension (gaseous) | CPT/HCPCS: 99212 ==

== ENCOUNTER 2024-01-26 09:14 | Outpatient (REF) | payer MEDICAID, SELFPAY ==
[2024-01-27 13:38] LABS: Follicle Stimulating Hormone 4.9 mIU/mL (1.4-12.8); Lutenizing Hormone 2.4 mIU/mL (1.5-9.3)
[2024-01-31 14:48] LABS: Testosterone, Total 125 ng/dL (250-1100)
== END 2024-01-26 09:15 | disposition home or self-care (01) ==
LOC: HO.CHCLDS 09:14
PROVIDERS: Visit Provider Family Medicine
DX: E29.1 Testicular hypofunction (principal)
CPT/HCPCS: 36415; 83001; 83002; 84402; 84403

== ENCOUNTER 2024-01-30 10:00 | Outpatient (AMB) | payer MEDICAID, SELFPAY ==
--- NOTE | 2024-01-30 10:03 | MHC.OFFVIS ---
Vital Signs 01/30/24 10:10 Height 5 ft 9 in Weight 274 lb BMI 40.5 Handedness Right Intake Visit Reasons: N/P RT Elbow Epicondylitis Intake Note: Suhail is a 58 year old right hand dominant male who presents today as a new patient for a evaluation of his right elbow. Patient report he had an injury when he was younger and her broke his forearm when he fell. No hx of injury to his elbow. He states that his pain is off and on for more than 6 months. Patient expresses that his pain is from his elbow and it moves down to his hand. His hand also numb all the time. No hx of treatment. Allergies No Known Allergies [No Known Allergies*] Allergy (Verified 01/30/24 10:09) HPI HPI N/P RT Elbow Epicondylitis: Details: 58-year-old right hand dominant male, who is [place] speaking, presents in the office today, as a new patient, for an evaluation of right elbow pain. Patient was referred to the office by Dr. Catherine Kaminski on 12/08/2023. He reports an injury as a child when he fell and broke his forearm. Reports intermittent pain for more than 6 months, since 07/2023. Claims his pain starts in the elbow and radiates to his hand. Reports chronic numbness in the hand. Denies any prior treatment. Patient has a medical history of DVT on Eliquis 5 mg PO BID. REPLACED BY [facility] Medical History Nicotine dependence, cigarettes, uncomplicated Colon polyp, hyperplastic (~2016) Insomnia Liver cirrhosis History of heroin use Chronic hepatitis C Hypertension, essential, benign Surgical History History of heart artery stent (~2021) History of cardiac cath (~2021) History of cholecystectomy (~2020) History of esophagogastroduodenoscopy (EGD) History of colonoscopy Family History Brother Lung cancer Social History (Updated 01/30/24 @ 10:10 by Dean Box) Household Members: Family Housing: House Are you a primary adult live in caregiver to a significant other at home: No Do you presently have visiting nurse or other home services: No Alcohol intake: never Patient Tobacco Use Status: Former Tobacco user Tobacco use type: Cigarette Cigarette Packs Per Day: 1 Years Smoked: onset 11, 1ppd x 45yrs, 45pyh - QUIT 02/26/2022 service: No Current occupational status: employed 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 No ecchymosis, erythema, or edema. No tenderness to palpation over the olecranon. No tenderness to the medial or lateral epicondyle. Negative Tinel?s at cubital and carpal tunnel. Sensation is diminished in all digits and reports tingling. Assessment & Plan Assessment & Plan (1) Cubital tunnel syndrome on right: Code(s): G56.21 - Lesion of ulnar nerve, right upper limb Category: Medical (2) Right carpal tunnel syndrome: Code(s): G56.01 - Carpal tunnel syndrome, right upper limb Category: Medical (3) Lipoma of right upper extremity: Code(s): D17.21 - Benign lipomatous neoplasm of skin and subcutaneous tissue of right arm Category: Medical Plan Mr. Manjit Sidhu is a 58-year-old right hand dominant male, who is [place]ican speaking, presents in the office today, as a new patient, for an evaluation of right elbow pain. Patient was referred to the office by Dr. Catherine Kaminski on 12/08/2023. He reports an injury as a child when he fell and broke his forearm. Reports intermittent pain for more than 6 months, since 07/2023. Claims his pain starts in the elbow and radiates to his hand. Reports chronic numbness in the hand. Denies any prior treatment. Patient has a medical history of DVT on Eliquis 5 mg PO BID. Patient had an EMG in 2021 which revealed carpal and cubital tunnel at the time. He reports his symptoms of numbness and tingling, mainly numbness, is becoming more dense in natura and is present at all times. I discussed with the patient that I would recommend surgical intervention fir carpal and cubital tunnel release due to the nature of his symptoms progressing since his EMG study and the possibility of permanent nerve damage should his symptoms continue to progress there is compression of the nerves. In regard to the lump on the dorsal aspect of the forearm, the patient states he was diagnosed with a lipoma in the area and would like referral to general surgery for removal, as this is causing him discomfort. A referral was placed today. At this time the patient is not comfortable moving forward with booking cubital and carpal tunnel release with me. He would like to meet with Dr. Robledo to discuss in more detail. Follow up will be with Dr. Robledo, or sooner if needed. Orders: Referrals General Surgery Referral R22.31 - Localized swelling, mass and lump, right upper limb Patient Instructions: Scribed by Kat Bello medical imaging technologist, for Carlota Lopez PA-C on 01/30/2024 at 10:04 am, EST. Coding Level of Care Code New Pt Level 4 (14353) Diagnoses Cubital tunnel syndrome on right G56.21 Right carpal tunnel syndrome G56.01 Lipoma of right upper extremity D17.21
[2024-01-30 10:10] VITALS: BMI 40.5
== END 2024-01-30 10:30 | disposition home or self-care (01) ==
PROVIDERS: PCP Family Medicine; Visit Provider Physician Assistant
DX: G56.21 Lesion of ulnar nerve, right upper limb (principal); G56.01 Carpal tunnel syndrome, right upper limb; D17.21 Benign lipomatous neoplasm of skin and subcutaneous tissue of right arm
CPT/HCPCS: 99204

== ENCOUNTER → 2024-01-30 19:00 | Outpatient (BNV) | payer MEDICAID, SELFPAY | PROVIDERS: Visit Provider Psychiatry & Neurology Neurology | DX: G47.33 Obstructive sleep apnea (adult) (pediatric) (principal) | CPT/HCPCS: 95811 ==

== ENCOUNTER → 2024-01-30 20:30 | Outpatient (REF) | payer MEDICAID, SELFPAY | LOC: HO.SL 20:30 | PROVIDERS: Visit Provider Family Medicine | DX: G47.33 Obstructive sleep apnea (adult) (pediatric) (principal); G56.21 Lesion of ulnar nerve, right upper limb; G56.01 Carpal tunnel syndrome, right upper limb; D17.21 Benign lipomatous neoplasm of skin and subcutaneous tissue of right arm | CPT/HCPCS: 95811; 99212 ==

== ENCOUNTER 2024-02-05 09:17 | Outpatient (AMB) | payer MEDICAID, SELFPAY ==
--- NOTE | 2024-02-05 09:52 | A.OFFVIS_ITS ---
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 Present Allergies No Known Allergies [No Known Allergies*] Allergy (Verified 02/05/24 09:55) Medication List - Last Reconciled 02/05/24 by SARAH Ponce apixaban (Eliquis DVT-PE Treat 30D Start) 5 mg PO BID buprenorphine-naloxone 8-2 mg (Suboxone) 10 mg sublingual BID chlorthalidone 25 mg PO QAM clopidogrel 75 mg PO DAILY docusate sodium 100 mg PO DAILY doxepin 10 mg PO BEDTIME ferrous gluconate 324 mg PO DAILY furosemide 40 mg PO QAM isosorbide mononitrate ER 30 mg PO DAILY lactulose 15 mL PO BEDTIME linaclotide (Linzess) 290 mcg PO QAM lisinopril 40 mg PO DAILY metoprolol succinate ER 50 mg PO QAM [id number] mcg (Centrum Silver Ultra Men's) 1 tab PO DAILY omeprazole 20 mg PO DAILY rosuvastatin 20 mg PO DAILY sennosides (senna) 8.6 mg PO DAILY spironolactone 12.5 mg PO QAM trazodone 200 mg PO BEDTIME HPI HPI Chest pain: Details: Suhail is a 58-year-old male with past medical history hypertension, hyperlipidemia, CAD, OM to stent who reported chest discomfort last summer and had abnormal nuclear stress test. 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 In October 2023 he reported to the emergency room with bilateral leg swelling. Ultrasound showed bilateral GSV thrombophlebitis. His aspirin and Brilinta were stopped and He was put on Eliquis and Plavix. On follow-up GI visit it was determined that he had not been taking Plavix from the time of his 11/07/2023 ED visit until it was identified on 01/13/2024. Plavix was then sent to his pharmacy. Today he reports that he has been getting chest discomfort and shortness of breath with physical activity such as stair climbing and taking the garbage cans to the end of the driveway. He states this symptom has been present right along even pre and post cardiac stenting. He says the symptom has never gone away fully. It is not occurring at rest. He does not feel it is increasing in frequency or severity. He is able to bring it on with his exertional activities. According to last visit he said he was not having the symptoms but now tells me that he was. No palpitations, lightheadedness, presyncope, syncope, PND, orthopnea or edema. His legs are feeling better. He reports compliance with his medications including Eliquis and Plavix. No bleeding issues reported. is present. [facility] Medical History Nicotine dependence, cigarettes, uncomplicated Colon polyp, hyperplastic (~2016) Insomnia Liver cirrhosis History of heroin use Chronic hepatitis C Hypertension, essential, benign Surgical History History of heart artery stent (~2021) History of cardiac cath (~2021) History of cholecystectomy (~2020) History of esophagogastroduodenoscopy (EGD) History of colonoscopy Family History Brother Lung cancer Social History Household Members: Family Housing: House Are you a primary healthcare interpreter to a significant other at home: No Do you presently have visiting nurse or other home services: No Alcohol intake: never Patient Tobacco Use Status: Former Tobacco user Tobacco use type: Cigarette Cigarette Packs Per Day: 1 Years Smoked: onset 11, 1ppd x 45yrs, 45pyh - QUIT 02/26/2022 service: No Current occupational status: employed 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 Review of Systems Const All systems reviewed & are unremarkable except as noted in HPI and below ENT Denies dizziness Card Reports chest pain, Denies chest pain at rest, Reports chest pain with activity, Denies rapid heart rate, Denies pedal edema, Denies edema, Denies leg edema, Denies lightheadedness, Denies palpitations, Denies dyspnea, Reports dyspnea on exertion and Denies orthopnea Resp Denies cough, Denies dyspnea and Reports dyspnea on exertion GI Denies hematochezia and Denies change in stool character Musc Denies abnormal gait, Denies limited range of motion, Denies muscle cramps, Denies muscle weakness, Denies numbness, Denies radiating pain into limb, Denies stiffness and Denies tingling Neuro Denies abnormal gait, Denies dizziness, Denies numbness and Denies tingling Endo Denies palpitations Physical Exam Vital Signs: Last Vital Signs Pulse 78 02/05/24 09:53 BP 120/82 02/05/24 09:53 BMI result Body Mass Index 37.8 Const General: cooperative, healthy appearing, comfortable and no acute distress Orientation/consciousness: patient oriented x3 Neck Neck: Yes normal visual inspection and Yes no JVD Resp Effort & Inspection: normal respiratory effort Auscultation: clear to auscultation bilaterally, no rales, no rhonchi and no wheezes Cardio Jugular venous distension: no JVD Rate: regular rate Rhythm: regular rhythm Heart sounds: S1 normal heart sound present, S2 normal heart sound present, no gallops, no murmurs and no rubs Neuro General: patient oriented x3 Extrem Other: trace bilateral lower leg swelling, L > R Psych Appearance: grossly normal Mental Status: mental status grossly normal Speech and movement: Normal speech and movement present Office Procedures EKG Details: Today read by me, sinus rhythm, nonspecific ST abnormality, rate 68, QTC 435 milliseconds [id number], Complete Assessment & Plan Assessment & Plan (1) Coronary artery disease: Comment: (KERMIT to OM2 - 08/2022), KERMIT to [facility], April 2023 Code(s): I25.10 - Atherosclerotic heart disease of [place] coronary artery without angina pectoris Category: Medical Plan: Known history of CAD with KERMIT to OM2 08/2022. On follow-up visit he reported chest discomfort similar to prior angina. He underwent a nuclear stress test on 05/16/2023 showing severe RCA ischemia, moderate left circumflex ischemia. 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 He was initially on aspirin and Plavix. ER visit 09/06/2024 4 leg pain shows thrombophlebitis of both legs. At that time his meds were changed to Plavix and Eliquis. It seems he did not take Plavix until it was identified at GI visit in December. Plavix was then sent to his pharmacy and he reports compliance since then. No bleeding issues. Today he reports that he has been getting exertional chest discomfort and shortness of breath but tells me this symptom has been present even before his stenting last April. He said this symptom never went away. On prior visits he had denied having anginal sounding symptoms. EKG done today showing sinus rhythm with no acute ST or T-wave abnormalities, rate 68. Recommended pharmacological nuclear stress test and he is reluctant. Tells me he failed the last stress test and does not want to fail again. His symptoms do sound anginal in nature. 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 He is on metoprolol. His current list does not include isosorbide. Will add isosorbide 30 mg daily as 2nd antianginal. Will check echocardiogram to reassess EF and wall motion. Discussed signs and symptoms of angina. Continue rosuvastatin with LDL goal less than 70. Continue hydrochlorothiazide, lisinopril for blood pressure control. Blood pressure today 120/82. Emergency care if needed for symptoms. Cardiology follow-up in 1 month sooner if needed (2) S/P cardiac catheterization: Comment: 05/22/2023, left main normal, lad distal 50% stenosis, left circumflex PIN DRAFTING MACHINE OPERATOR in stent AV groove, [id number] collaterals, right PA V, proximal 99% stenosis, balloon angioplasty and stent placed Code(s): Z98.890 - Other specified postprocedural states Category: Surgical Plan: As above (3) Exertional chest pain: Code(s): R07.9 - Chest pain, unspecified Category: Medical Plan: Patient states now that it never fully went away. (4) Hypertension, essential, benign: Code(s): I10 - Essential (primary) hypertension Category: Medical Plan: Well controlled (5) Hyperlipidemia: Code(s): E78.5 - Hyperlipidemia, unspecified Category: Medical Plan: [place] LDL goal less than 70 in patient with CAD. No recent lipid profile in our system. Follows with outside PCP. Will forward this note to his provider. Recommend lipids be checked. (6) Superficial thrombophlebitis of both legs: Code(s): I80.03 - Phlebitis and thrombophlebitis of superficial vessels of lower extremities, bilateral Category: Medical Plan: Noted on ultrasound 11/06/2023. He has been on Eliquis for anticoagulation. This is being followed by his PCP. Plan Time spent on chart review, documentation, interview and assessment Medications: New isosorbide mononitrate ER 30 mg PO DAILY 30 tabs 5RF Coding Level of Care Code Est Pt Level 4 (18501) Diagnoses Coronary artery disease I25.10 S/P cardiac catheterization Z98.890 Exertional chest pain R07.9 Hypertension, essential, benign I10 Hyperlipidemia E78.5 Superficial thrombophlebitis of both legs I80.03 CPT Codes EKG - CPT: [id number], Complete ([id number]) Time Spent (min) 30
[2024-02-05 09:53] VITALS: BP 120/82; PULSE 78; BMI 37.8
== END 2024-02-05 11:12 | disposition home or self-care (01) ==
PROVIDERS: PCP Family Medicine; Visit Provider Nurse Practitioner Family
DX: I25.10 Atherosclerotic heart disease of native coronary artery without angina pectoris (principal); Z98.890 Other specified postprocedural states; R07.9 Chest pain, unspecified; I10 Essential (primary) hypertension; E78.5 Hyperlipidemia, unspecified; I80.03 Phlebitis and thrombophlebitis of superficial vessels of lower extremities, bilateral
CPT/HCPCS: 93010; 99214

== ENCOUNTER → 2024-02-05 09:17 | Outpatient (BNVA) | payer MEDICAID, SELFPAY | PROVIDERS: PCP Family Medicine; Visit Provider Nurse Practitioner Family | DX: I25.10 Atherosclerotic heart disease of native coronary artery without angina pectoris (principal); I10 Essential (primary) hypertension; I80.03 Phlebitis and thrombophlebitis of superficial vessels of lower extremities, bilateral; E78.5 Hyperlipidemia, unspecified; R07.9 Chest pain, unspecified; Z98.890 Other specified postprocedural states | CPT/HCPCS: 93005; 99212 ==

== ENCOUNTER 2024-02-17 11:20 | Emergency (ER) | payer MEDICAID, SELFPAY ==
[2024-02-17] VITALS (7 sets, daily range): BP systolic 133–149; BP diastolic 73–86; PULSE 95–146; RESP 20–24; TEMP 36.5–36.8; O2SAT 97–98; BMI 39.9
--- NOTE | ~2024-02-17 | CT_ITS ---
EXAMINATION: CT ABDOMEN AND PELVIS WITHOUT CONTRAST CLINICAL INFORMATION: Epigastric pain COMPARISON: 11/04/2023 TECHNIQUE: Multidetector volumetric imaging was performed from the superior aspect of the liver through the pubic symphysis. Sagittal and coronal reformatted images were obtained on the technologist's workstation. This CT examination was performed using dose optimization techniques as appropriate, variously including the following: *Automated exposure control *Adjustment of mA and/or kV according to patient size (this includes techniques or standardized protocols for targeted exams where dose is matched to indication/reason for exam; i.e. extremities or head) *Use of iterative reconstruction technique DLP: 735 mGy-cm FINDINGS: LUNG BASES: The visualized lung bases are unremarkable. LIVER, GALLBLADDER, AND BILIARY TREE: The liver is prominent but does have a somewhat nodular cirrhotic contour. No focal hepatic mass or intrahepatic biliary dilatation. The gallbladder is surgically absent. PANCREAS: Abnormal. There is a moderate inflammatory process surrounding the entire pancreas in a pattern consistent with acute pancreatitis particularly though more so around the pancreatic head extending to the adjacent duodenum. There are no drainable collections nor is there appear to be gland necrosis at this time. SPLEEN: Prominent spleen. Perisplenic collateral vessels are noted, likely the sequela of portal venous hypertension. ADRENAL GLANDS: Unremarkable. KIDNEYS AND URETERS: The kidneys are normal in size, shape, and attenuation. No hydronephrosis, hydroureter, or calculi seen. No perinephric stranding. BLADDER: Unremarkable. GASTROINTESTINAL TRACT: The stomach is distended with fluid. No bowel obstruction however or right or left lower quadrant inflammation. ABDOMINAL WALL: Small fat-containing umbilical hernia. LYMPH NODES: Normal. VASCULAR: Aorta is atherosclerotic but nonaneurysmal. PELVIC VISCERA: Unremarkable. OSSEOUS STRUCTURES: Unremarkable. CT/CT abdomen pelvis wo IV con IMPRESSION: Acute pancreatitis. Fleischner guidelines were followed.
--- NOTE | 2024-02-17 11:41 | ED_ITS ---
HPI - Abdominal Pain General Chief Complaint: Abdominal Pain Stated Complaint: Abd pain Time Seen by Provider: 02/17/24 16:12 Source: patient and family Mode of arrival: ambulatory Limitations: no limitations History of Present Illness ED Provider: Dr. Carmen Renner HPI narrative: Patient comes to the emergency room complaining of abdominal pain that started 15 hours ago. Patient complaining of nausea and vomiting, denies. Patient states that at home he took Pepto-Bismol. Patient states that he has had pancreatitis in the past. Patient is adamant that he has never been an alcoholic. Patient has had history of cholecystectomy. Patient states that he has had past episodes of pancreatitis. Related Data Home Medications ?Medication ?Instructions ?Recorded ?Confirmed buprenorphine 8 mg-naloxone 2 mg 10 mg sublingual BID 01/29/22 02/05/24 sublingual film (Suboxone) lisinopril 40 mg tablet 40 mg PO DAILY 01/29/22 02/05/24 doxepin 10 mg capsule 10 mg PO BEDTIME 04/14/23 02/05/24 chlorthalidone 25 mg tablet 25 mg PO QAM 10/01/23 02/05/24 ferrous gluconate 324 mg (37.5 mg 324 mg PO DAILY 10/01/23 02/05/24 iron) tablet lactulose 10 gram/15 mL oral 15 ml PO BEDTIME 10/01/23 02/05/24 solution metoprolol succinate 50 mg 50 mg PO QAM 10/01/23 02/05/24 tablet,extended release 24 hr [id number] 300 mcg-K 60 1 tab PO DAILY 10/01/23 02/05/24 mcg-lycop 600 mcg-lutein 300 mcg tablet (Centrum Silver Ultra Men's) trazodone 100 mg tablet 200 mg PO BEDTIME 11/25/23 02/05/24 docusate sodium 100 mg capsule 100 mg PO DAILY 02/05/24 02/05/24 furosemide 40 mg tablet 40 mg PO QAM 02/05/24 02/05/24 sennosides 8.6 mg tablet (senna) 8.6 mg PO DAILY 02/05/24 02/05/24 spironolactone 25 mg tablet 12.5 mg PO QAM 02/05/24 02/05/24 Previous Rx's ?Medication ?Instructions ?Recorded omeprazole 20 mg capsule,delayed 20 mg PO DAILY #90 caps 10/01/23 release rosuvastatin 20 mg tablet 20 mg PO DAILY #30 tabs 11/05/23 apixaban 5 mg (74 tabs) tablets in 5 mg PO BID #74 ea 11/07/23 a dose pack (Eliquis DVT-PE Treat 30D Start) linaclotide 290 mcg capsule 290 mcg PO QAM #30 caps 01/09/24 (Linzess) clopidogrel 75 mg tablet 75 mg PO DAILY #30 tabs 01/13/24 isosorbide mononitrate 30 mg 30 mg PO DAILY #30 tabs 02/05/24 tablet,extended release 24 hr Allergies Allergy/AdvReac Type Severity Reaction Status Date / Time No Known Allergies Allergy Verified 02/17/24 11:41 [No Known Allergies*] Review of Systems Review of Systems Constitutional : No Weight loss, No Fever, No Chills, No Night Sweats, No Fatigue, No Malaise ENT/Mouth : No Hearing loss, No Ear Pain, No Nasal Congestion, No Sinus Pain, No Hoarseness, No sore throat, No Rhinorrhea, No Swallowing Difficulty Eyes: No Eye Pain, No Swelling, No Redness, No Foreign Body, No Discharge, No Vision Changes Cardiovascular : No Chest Pain, No SOB, No Dyspnea on Exertion, No Orthopnea, No Edema, No Palpitations Respiratory : No Cough, No Sputum, No Wheezing, No Smoke Exposure, No Dyspnea Gastrointestinal : Complaining of nausea, vomiting, severe epigastric pain Genitourinary : no irregular bleeding, No Dysuria, No Urinary Frequency, No Hematuria, No Urinary Incontinence, No Urgency, No Flank Pain, No Urinary Flow Changes, No Hesitancy Musculoskeletal : No joint pain, No Myalgias, No Joint Swelling Skin : No Skin Lesions, No rash Neuro : No Weakness, No Numbness, No Paresthesias, No Loss of Consciousness, No Dizziness, No Headache Psych : No Anxiety/Panic, No Depression, No SI/HI/AH/VH, No Social Issues, Heme/Lymph: No Bruising, No Bleeding,No Lymphadenopathy Endocrine : No Polyuria, No Polydipsia, No Temperature Intolerance [facility] Past Medical History Medical History Nicotine dependence, cigarettes, uncomplicated Colon polyp, hyperplastic (~2017) Insomnia Liver cirrhosis History of heroin use Chronic hepatitis C Hypertension, essential, benign Surgical History History of heart artery stent (~2021) History of cardiac cath (~2021) History of cholecystectomy (~2020) History of esophagogastroduodenoscopy (EGD) History of colonoscopy Family History Family History Brother Lung cancer Social History Social History Household Members: Family Housing: House Are you a primary home care scheduler to a significant other at home: No Do you presently have visiting nurse or other home services: No Alcohol intake: never Patient Tobacco Use Status: Former Tobacco user Tobacco use type: Cigarette Cigarette Packs Per Day: 1 Years Smoked: onset 11, 1ppd x 45yrs, 45pyh - QUIT 02/26/2022 Advance Directives: No Advance Directives Information Provided: No service: No Current occupational status: employed 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 Oriented X3. Seems uncomfortable Eyes: Pupils equal, round and reactive to light. ENT: Pharynx normal. Neck: Normal inspection. Neck supple. No lymph nodes noted. No crepitus CVS: Normal heart rate and rhythm. Pulses normal. Normal S1 and S2 Respiratory: No respiratory distress. Breath sounds normal. No Wheezing. No rales Abdomen: Soft, very tender to palpation, positive guarding, no rebound, distended Skin: Skin warm and dry. Normal skin color. Normal skin turgor. Extremities: No lower extremity edema. No Lacerations. No Rash Neuro: Oriented X 3. No motor deficit. No sensory deficit. Moving all extremities. No slurred speech. CN 2 through 12 grossly intact Psych: calm, cooperative, normal affect Course Course Course Narrative: This is a Rapid Medical Examination (RME) performed by Deny Malone PA-C in triage. Full HPI, ROS, assessment and treatment plan per primary provider in the Main ED. 58 yo male hx of chronic HTN, hep c, heroin abuse on suboxone, liver cirrhosis, insomnia, chronic constipation here for eval of epigastric pain which woke him up at 0300 this morning with assoc N/V. normal BM last night. passing gas. reports taking pepto and anahi seltzer without relief. abd firm, distended, nontender, no rebound or guarding. normoactive bs. Plan: labs, UA, ct scan Medical Decision Making Medical Decision Making [facility] Narrative: -my interpretation of labs: Hematology 8.6. It has been 4-1/2 hours, the chemistries still pending. I contacted the labs. They informed me that the patient's chemistry is too lipimic in our analyzer can not read the chemistry. Therefore, patient's labs need to be sent to [facility] and they will return tonight. -at this time, we do not know if patient has DKA -patient's point of care of glucose is greater than 600. The patient's knowledge, he has not diabetic. -triglycerides levels is 4048 -patient was started on insulin. Given a 10 unit push and also started on an insulin drip -patient given IV morphine for pain with no significant pain relief, then patient was given morphine. -patient has 3 L of normal saline -we do not have an ICU bed available. -we tried calling [facility], [facility], other local [facility] with ICU capability, [facility] and [facility], unfortunately, there are no ICU beds available. -[facility] accepted the patient, ED to ED transfer, accepting physician Dr. Nassar Differential Diagnosis Differential Diagnoses: The differential diagnosis associated with the presentation includes (Pancreatitis) Admission/Observation Consideration of admission/observation: Escalation of care including admission/observation considered Consult Healthcare Provider Management of the patient was discussed with: Silk Trimmer Lab Data [facility] Lab Attestation statement: I reviewed the patient's lab results. 02/17/24 12:27 02/17/24 17:38 Labs: Lab Results 02/17/24 02/17/24 02/17/24 Range/Units 12:27 15:11 17:23 WBC 8.6 (4.8-10.8) X10*3/uL RBC 4.79 D (4.60-5.80) X10*6/uL Hgb 12.6 L (14.0-18.0) g/dl Hct 37.4 L (42.0-52.0) % MCV 78.1 L (80.0-98.0) fL MCH 26.3 L (27.0-33.0) pg MCHC 33.7 (31.0-36.0) g/dl RDW 13.2 (11.0-16.0) % Plt Count 245 D (160-400) X10*3/uL MPV 12.2 (9.4-12.4) fL Immature Gran % (Auto) 0.3 (0.0-0.4) % Neut % (Auto) 78.4 H (45-73) % Lymph % (Auto) 13.1 L (20-40) % Wilkes % (Auto) 7.9 (2-11) % Eos % (Auto) 0.1 (0-4) % Baso % (Auto) 0.2 (0-2) % Lymph # (Auto) 1.1 L (1.2-4.9) X10*3/uL Wilkes # (Auto) 0.7 (0.1-1.2) X10*3/uL Eos # (Auto) 0.0 (0.0-0.4) X10*3/uL Baso # (Auto) 0.0 (0.0-0.2) X10*3/uL Abs Immat Gran (auto) 0.03 (0.00-0.03) X10*3/uL Absolute Neuts (auto) 6.7 (2.0-8.3) x10*3/uL Absolute Nucleated RBC 0.000 (0.0-0.012) X10*3/uL Nucleated RBC % (auto) 0.0 (0.0-0.2) /100WBC POC Glucose > 600 H* (60-115) mg/dL Triglycerides 4048 H (<150) mg/dL Specimen Comment DELAY Urine Color Urine Appearance Urine pH (5.0-9.0) Ur Specific [place] (1.005-1.025) Urine Protein (Neg-Trace) mg/dL Urine Glucose (UA) (Negative) mg/dL Urine Ketones (Negative) mg/dL Urine Blood (Negative) Urine Nitrite (Negative) Ur Leukocyte Esterase (Negative) Urine RBC (0-2) /HPF Urine WBC (0-5) /HPF Ur Squamous Epith Cells (0-2) /HPF Urine Bacteria (None Seen) Hyaline Casts (0-2) /LPF Urine Opiates Screen (Not Detect) Ur Buprenorphine Scrn (Not Detect) ng/mL Ur Oxycodone Screen (Not Detect) ng/mL Urine Methadone Screen (Not Detect) ng/mL Urine Fentanyl Screen (Not Detect) Ur Barbiturates Screen (Not Detect) Ur Phencyclidine Scrn (Not Detect) Ur Amphetamines Screen (Not Detect) U Benzodiazepines Scrn (Not Detect) Urine Cocaine Screen (Not Detect) U Marijuana (THC) Screen (Not Detect) 02/17/24 02/17/24 Range/Units 17:26 18:00 WBC (4.8-10.8) X10*3/uL RBC (4.60-5.80) X10*6/uL Hgb (14.0-18.0) g/dl Hct (42.0-52.0) % MCV (80.0-98.0) fL MCH (27.0-33.0) pg MCHC (31.0-36.0) g/dl RDW (11.0-16.0) % Plt Count (160-400) X10*3/uL MPV (9.4-12.4) fL Immature Gran % (Auto) (0.0-0.4) % Neut % (Auto) (45-73) % Lymph % (Auto) (20-40) % Wilkes % (Auto) (2-11) % Eos % (Auto) (0-4) % Baso % (Auto) (0-2) % Lymph # (Auto) (1.2-4.9) X10*3/uL Wilkes # (Auto) (0.1-1.2) X10*3/uL Eos # (Auto) (0.0-0.4) X10*3/uL Baso # (Auto) (0.0-0.2) X10*3/uL Abs Immat Gran (auto) (0.00-0.03) X10*3/uL Absolute Neuts (auto) (2.0-8.3) x10*3/uL Absolute Nucleated RBC (0.0-0.012) X10*3/uL Nucleated RBC % (auto) (0.0-0.2) /100WBC POC Glucose > 600 H* (60-115) mg/dL Triglycerides (<150) mg/dL Specimen Comment Urine Color Yellow Urine Appearance Clear Urine pH 5.0 (5.0-9.0) Ur Specific [place] 1.025 (1.005-1.025) Urine Protein Negative (Neg-Trace) mg/dL Urine Glucose (UA) >=1000 H (Negative) mg/dL Urine Ketones Trace (Negative) mg/dL Urine Blood Negative (Negative) Urine Nitrite Negative (Negative) Ur Leukocyte Esterase Negative (Negative) Urine RBC 0-2 (0-2) /HPF Urine WBC 0-5 (0-5) /HPF Ur Squamous Epith Cells 0-2 (0-2) /HPF Urine Bacteria None Seen (None Seen) Hyaline Casts 0-2 (0-2) /LPF Urine Opiates Screen POSITIVE H (Not Detect) Ur Buprenorphine Scrn Positive H (Not Detect) ng/mL Ur Oxycodone Screen Not Detected (Not Detect) ng/mL Urine Methadone Screen Not Detected (Not Detect) ng/mL Urine Fentanyl Screen Not Detected (Not Detect) Ur Barbiturates Screen Not Detected (Not Detect) Ur Phencyclidine Scrn Not Detected (Not Detect) Ur Amphetamines Screen Not Detected (Not Detect) U Benzodiazepines Scrn Not Detected (Not Detect) Urine Cocaine Screen Not Detected (Not Detect) U Marijuana (THC) Screen Not Detected (Not Detect) Independent Interpretation I performed an independent interpretation of an: CT Scan Radiology Impression Discussion of test interpretation with radiology: I have reviewed the radiologist's reading. Radiologist Impression: FINDINGS: LUNG BASES: The visualized lung bases are unremarkable. LIVER, GALLBLADDER, AND BILIARY TREE: The liver is prominent but does have a somewhat nodular cirrhotic contour. No focal hepatic mass or intrahepatic biliary dilatation. The gallbladder is surgically absent. PANCREAS: Abnormal. There is a moderate inflammatory process surrounding the entire pancreas in a pattern consistent with acute pancreatitis particularly though more so around the pancreatic head extending to the adjacent duodenum. There are no drainable collections nor is there appear to be gland necrosis at this time. SPLEEN: Prominent spleen. Perisplenic collateral vessels are noted, likely the sequela of portal venous hypertension. ADRENAL GLANDS: Unremarkable. KIDNEYS AND URETERS: The kidneys are normal in size, shape, and attenuation. No hydronephrosis, hydroureter, or calculi seen. No perinephric stranding. BLADDER: Unremarkable. GASTROINTESTINAL TRACT: The stomach is distended with fluid. No bowel obstruction however or right or left lower quadrant inflammation. ABDOMINAL WALL: Small fat-containing umbilical hernia. LYMPH NODES: Normal. VASCULAR: Aorta is atherosclerotic but nonaneurysmal. PELVIC VISCERA: Unremarkable. OSSEOUS STRUCTURES: Unremarkable. CT/CT abdomen pelvis wo IV con IMPRESSION: Acute pancreatitis. Fleischner guidelines were followed. Independent Historian Clinical information obtained from an independent historian. History obtained from or confirmed by: Spouse Medications Administered Generic Name Dose Route Start Last Admin Trade Name Freq PRN Reason Stop Dose Admin Sodium Chloride 2,000 mls @ 999 mls/hr 02/17/24 16:44 02/17/24 16:58 Ns IVCONT 02/17/24 18:44 999 mls/hr .Q2H1M ONE Administration Discontinued Medications Generic Name Dose Route Start Last Admin Trade Name Freq PRN Reason Stop Dose Admin Hydromorphone HCl 1 mg 02/17/24 17:46 02/17/24 17:54 Hydromorphone Hcl 1 Mg/Ml Syringe IVPUSH 02/17/24 17:47 1 mg ONCE ONE Administration Protocol Insulin Human Regular 10 unit 02/17/24 17:21 02/17/24 17:38 Insulin Regular, Human 100 Unit/Ml 3 Ml Vial IVPUSH 02/17/24 17:22 10 unit ONCE ONE Administration Morphine Sulfate 4 mg 02/17/24 16:44 02/17/24 16:59 Morphine Sulfate 4 Mg/Ml Cartridge IVPUSH 02/17/24 16:45 4 mg ONCE ONE Administration Protocol Ondansetron HCl 4 mg 02/17/24 16:44 02/17/24 16:59 Ondansetron Hcl 4 Mg/2 Ml Vial IVPUSH 02/17/24 16:45 4 mg ONCE ONE Administration Critical Care Time Critical Care Time Critical Care Time: Yes Total Critical Care Time: 60 Attestation: I have personally provided critical care time. Time includes review of lab data, radiology results, discussion with consultants, and monitoring for potential decompensation. Intervention performed as documented. Discharge Plan Discharge Clinical Impression: Hypertriglyceridemia, Acute pancreatitis Patient Disposition: [facility] Transfer Details: ED to ED transfer, [facility], accepting physician Dr. Nassar Prescriptions: No Action rosuvastatin 20 mg tablet 20 mg PO DAILY Qty: 30 10RF clopidogrel 75 mg tablet 75 mg PO DAILY Qty: 30 4RF Rx Instructions: Need to take for protection of heart stent - until 05/22/24. ( along with Eliquis) Eliquis DVT-PE Treat 30D Start 5 mg (74 tabs) tablets,dose pack 5 mg PO BID Qty: 74 0RF buprenorphine-naloxone [Suboxone] 8-2 mg film 10 mg sublingual BID lisinopril 40 mg tablet 40 mg PO DAILY doxepin 10 mg capsule 10 mg PO BEDTIME Linzess 290 mcg capsule 290 mcg PO QAM Qty: 30 4RF trazodone 100 mg tablet 200 mg PO BEDTIME spironolactone 25 mg tablet 12.5 mg PO QAM docusate sodium 100 mg capsule 100 mg PO DAILY furosemide 40 mg tablet 40 mg PO QAM sennosides [senna] 8.6 mg tablet 8.6 mg PO DAILY isosorbide mononitrate 30 mg tablet extended release 24 hr 30 mg PO DAILY Qty: 30 5RF Centrum Silver Ultra Men's [id number] mcg tablet 1 tab PO DAILY ferrous gluconate 324 mg (37.5 mg iron) tablet 324 mg PO DAILY chlorthalidone 25 mg tablet 25 mg PO QAM lactulose 10 gram/15 mL solution 15 ml PO BEDTIME metoprolol succinate 50 mg tablet extended release 24 hr 50 mg PO QAM omeprazole 20 mg capsule,delayed release(DR/EC) 20 mg PO DAILY Qty: 90 3RF Print Language: Lithuanian
[2024-02-17 13:05] LABS: Basophils Percent Auto 0.2 % (0-2); Eosinophils Percent Auto 0.1 % (0-4); Hematocrit 37.4 % (42.0-52.0); Imm Gran Abs Auto 0.03 X10*3/uL (0.00-0.03); Imm Gran Pct Auto 0.3 % (0.0-0.4); Lymphocytes Absolute Auto 1.1 X10*3/uL (1.2-4.9); Lymphocytes Percent Auto 13.1 % (20-40); Mean Corpuscular Volume 78.1 fL (80.0-98.0); Mean Platelet Volume 12.2 fL (9.4-12.4); Monocytes Absolute Auto 0.7 X10*3/uL (0.1-1.2); Monocytes Percent Auto 7.9 % (2-11); Neutrophils Absolute Auto 6.7 x10*3/uL (2.0-8.3); Neutrophils Percent Auto 78.4 % (45-73); Platelet Count 245 X10*3/uL (160-400); Red Blood Count 4.79 X10*6/uL (4.60-5.80); Red Cell Distribution Width 13.2 % (11.0-16.0); White Blood Count 8.6 X10*3/uL (4.8-10.8)
[2024-02-17 13:09] LABS: Hemoglobin 12.6 g/dl (14.0-18.0); Mean Corpuscular HGB Conc 33.7 g/dl (31.0-36.0); Mean Corpuscular Hemoglobin 26.3 pg (27.0-33.0)
[2024-02-17 16:41] LABS: Delay - Chemistry DELAY
[2024-02-17] MEDS: 0.9 % Sodium Chloride 2,000 ML 999 ML IVCONT (16:58)
[2024-02-17] MEDS: ondansetron HCL 4 MG/2 ML VIAL IVPUSH (16:59)
[2024-02-17] MEDS: Morphine Sulfate 4 MG/ML CARTRIDGE IVPUSH (16:59)
[2024-02-17 17:10] LABS: Triglycerides 4048 mg/dL (<150)
--- NOTE | 2024-02-17 17:30 | PC.NURSE ---
Pt placed on cardiac technician, O2 applied for comfort, multiple techs at bedside to attempt lab work. POC reading high x2, provider aware. Pt talked to by provider to let staff do what they need to do as is interfering with care.
[2024-02-17 17:33] LABS: Glucose, Whole Blood > 600 mg/dL (60-115)
[2024-02-17 17:33] LABS: Glucose, Whole Blood > 600 mg/dL (60-115)
[2024-02-17] MEDS: Insulin Regular, Human 100 UNIT/ML 3 ML VIAL 10 UNIT IVPUSH (17:38)
[2024-02-17] MEDS: HYDROmorphone HCl 1 MG/ML SYRINGE IVPUSH ×2 (17:54→18:22)
[2024-02-17 18:07] LABS: Appearance Urine Clear; Color Urine Yellow; Glucose Urine UA >=1000 mg/dL (Negative); Leukocyte Esterase Urine Negative (Negative); Nitrite Urine Negative (Negative); Specific Gravity - Urine 1.025 (1.005-1.025); UMIC TRIGGER UACC YES; Urine Blood Negative (Negative); Urine Ketones Trace mg/dL (Negative); Urine Protein Negative (Neg-Trace)
[2024-02-17 18:12] LABS: Bacteria Urine None Seen (None Seen); Hyaline Casts Urine 0-2 /LPF (0-2); RBC Urine 0-2 /HPF (0-2); Squamous Epithelial Cell Urine 0-2 /HPF (0-2); WBC Urine 0-5 /HPF (0-5)
[2024-02-17] MEDS: Insulin Regular/NS 100 UNIT/100 ML PLAST..BAG IVCONT (18:16)
[2024-02-17 18:18] LABS: Amphetamine Screen Urine Not Detected (Not Detect); Barbiturates, Urine Not Detected (Not Detect); Benzodiazepines Screen Urine Not Detected (Not Detect); Buprenorphine Scr Positive (Not Detect); Cannabinoid Screen Urine Not Detected (Not Detect); Cocaine Screen Urine Not Detected (Not Detect); Fentanyl, urine Not Detected (Not Detect); Methadone Screen, Urine Not Detected (Not Detect); Opiate Screen Urine POSITIVE (Not Detect); Oxycodone Screen Urine Not Detected (Not Detect); Phencyclidine Screen Urine Not Detected (Not Detect)
[2024-02-17] MEDS: 0.9 % Sodium Chloride 1,000 ML 999 ML IVCONT (18:21)
[2024-02-17 18:28] LABS: Glucose Random 953 mg/dL (60-115)
--- NOTE | 2024-02-17 18:32 | PC.NURSE ---
This RN transferred patient from avila bed to room with monitor. second IV placed at this time in patient wrist, 1L put on pressure bag, 3L ordered and hung. Pt received 2 push doses of Dilaudid and 1 dose of morphine. This RN along with lithopone charger and a third RN reviewed insulin drip protocol, as pt was put on none DKA protocol, however it was also ordered for patient to receive 0.1units/kg/hr, but the protocol was stating 5units/hr. At this time nursing called MD into room to assess what the MD wanted. PER MD 5UNITS/HR TO BE RUN. This RN explained the order vs protocol, however provider continued to want 5units/hr. Pt transferred to EMS stretcher, currently running with fluids, and insulin at 5units/hr. Pt being transferred to [facility]. Nurse to nurse called at this time.
[2024-02-18 07:26] LABS: Sodium 125 mmol/L (135-145)
[2024-02-18 07:28] LABS: Chloride 78 mmol/L (96-108)
[2024-02-18 07:29] LABS: Carbon Dioxide 14 mmol/L (22-29)
[2024-02-18 07:30] LABS: Anion Gap 33 (12-20); Blood Urea Nitrogen 29 mg/dL (9-16); Creatinine Clr Calc Pharmacy 101.8
[2024-02-18 07:31] LABS: Estimated Glomerular Filt Rate > 60
[2024-02-18 08:10] LABS: Glucose Random 801 mg/dL (60-115)
[2024-02-18 08:11] LABS: Bilirubin Total 1.3 mg/dL (0.0-1.0); Calcium 8.3 mg/dL (8.4-10.2); Magnesium 1.9 mg/dL (1.6-2.6)
[2024-02-18 08:13] LABS: Alanine Aminotransferase 32 U/L (0-40)
[2024-02-18 08:18] LABS: Albumin Level 4.1 g/dL (3.5-5.0); Alkaline Phosphatase 106 U/L (39-117); Total Protein 8.1 g/dL (6.5-8.0)
[2024-02-18 08:19] LABS: Lipase 3529 U/L (8-78)
== END 2024-02-17 18:43 | disposition short-term general hospital (02) ==
PROVIDERS: Physician Assistant Medical; Emergency Provider Emergency Medicine; PCP Family Medicine
DX: E78.1 Pure hyperglyceridemia (principal); K85.90 Acute pancreatitis without necrosis or infection, unspecified; R10.9 Unspecified abdominal pain; R11.2 Nausea with vomiting, unspecified; B19.20 Unspecified viral hepatitis C without hepatic coma; I10 Essential (primary) hypertension; Z79.899 Other long term (current) drug therapy
CPT/HCPCS: 36415; 74176; 80053; 80307; 81001; 82947; 83690; 83735; 84478; 85025; 96374; 96375; 96376; 99285; J1170; J2270; J2405